=== PATIENT | female | born 1960 | race Caucasian/White ===

== ENCOUNTER 2019-10-31 13:38 | Outpatient (CLI) | payer BC, SELFPAY ==
--- NOTE | 2019-10-31 | ECG_ITS ---
Measurements Intervals [place] Rate: 83 P: 54 RI: 188 QRS: 96 QRSD: 90 T: 48 QT: 371 QTc: 437 Interpretive Statements SINUS RHYTHM WITH SINUS ARRHYTHMIA RIGHT AXIS DEVIATION MINIMAL Q WAVES- INFERIOR LEADS BASELINE ARTIFACT- I, III, AVL BORDERLINE ECG Electronically Signed On 10-31-2019 14:37:52 CDT by Kun Mosher D.O.
[2019-10-31 14:31] LABS: Anion Gap 15.1 mmol/L (7-16); Blood Urea Nitrogen 20 mg/dL (7-17); Calcium 10.1 mg/dL (8.4-10.2); Carbon Dioxide 25 mmol/L (22-30); Chloride 99 mmol/L (98-107); Estimated Glomerular Filt Rate > 60; Glucose 114 mg/dL (65-105); Potassium 5.1 mmol/L (3.4-5.0); Sodium 134 mmol/L (137-145)
== END 2019-10-31 13:39 | disposition home or self-care (01) ==
PROVIDERS: Visit Provider Podiatrist Foot & Ankle Surgery
DX: R03.0 Elevated blood-pressure reading, without diagnosis of hypertension (principal); E11.42 Type 2 diabetes mellitus with diabetic polyneuropathy; R94.31 Abnormal electrocardiogram [ECG] [EKG]
CPT/HCPCS: 36415; 80048; 93005

== ENCOUNTER → 2021-01-12 09:07 | Outpatient (CLI) | payer BC, SELFPAY ==
--- NOTE | ~2021-01-12 | DEXA_ITS ---
Bone Density Report Name: Del Paige Age: 60 Sex: Female Ethnicity: White Date of : 1960 Indication: postmenopausal; screening for osteoporosis; height loss; Referring Provider: [place], [place] Study: Bone densitometry was performed. Exam Date: January 12, 2021 Accession number: [id number] Bone Density: Region BMD T-score Z-score Classification AP Spine (L1-L4) 1.058 0.1 1.5 Normal Femoral Neck (Left) 0.728 -1.1 0.2 Osteopenia Total Hip (Left) 0.840 -0.8 0.1 Normal Femoral Neck (Right) 0.649 -1.8 -0.5 Osteopenia Total Hip (Right) 0.784 -1.3 -0.4 Osteopenia Total Hip Mean 0.812 -1.1 -0.2 Osteopenia World Health Organization criteria for BMD impression classify patients as: Normal (T-score at or above -1.0), Osteopenia (T-score between -1.0 and -2.5), or Osteoporosis (T-score at or below -2.5). 10-year Fracture Risk(1): Major Osteoporotic Fracture 8.4% Hip Fracture 0.8% Reported Risk Factors: [place] (), Neck BMD=0.649, BMI=27.9 (1) FRAX(R) Version 3.08. Fracture probability calculated for an untreated patient. Fracture probability may be lower if the patient has received treatment. Previous Exams: Region Exam Age BMD T-score BMD Change BMD Change Date g/cm2 vs Baseline vs Previous AP Spine(L1-L4) 01/12/2021 60 1.058 0.1 -0.073* -0.073* 02/22/2018 57 1.131 0.8 Total Hip(Left) 01/12/2021 60 0.840 -0.8 -0.065* -0.065* 02/22/2018 57 0.905 -0.3 Total Hip(Right) 01/12/2021 60 0.784 -1.3 -0.031* -0.031* 02/22/2018 57 0.816 -1.0 *Denotes significance at 95% confidence level, LSC for AP Spine = 0.022 g/cm2, LSC for Total Hip = 0.027 g/cm2 Clinical Information Provided by Patient: Has used the following medications: Vitamin D, Calcium Patient maximum height was 67.5 Menopause Age: 54 Onset of menses at age 14 Number of children 2 Impression: The patient has low bone mass, based on the Right Femoral Neck T-score. The patient has an estimated ten-year risk of hip fracture of 0.8% and an estimated ten-year risk of major fracture of 8.4%, based on the WHO FRAX algorithm. The BMD for the AP Spine(L1-L4) decreased, changing by -0.073 since the last DXA exam. The BMD for the Total Hip(Left) decreased, changing by -0.065 since the last DXA exam. The BMD for the Total Hip(Right) decreased, changing by -0.031 since the last DXA exam. Discussion: BONE
== END ==
PROVIDERS: Visit Provider Student in an Organized Health Care Education/Training Program
DX: Z78.0 Asymptomatic menopausal state (principal); M85.852 Other specified disorders of bone density and structure, left thigh; M85.851 Other specified disorders of bone density and structure, right thigh
CPT/HCPCS: 77080

== ENCOUNTER → 2021-01-12 10:31 | Outpatient (CLI) | payer BC, SELFPAY ==
--- NOTE | ~2021-01-12 | MM_ITS ---
EXAMINATION: MM screening ziggy BI w danyelle HISTORY: Screening mammogram TECHNIQUE: Craniocaudal and mediolateral oblique 3-D tomosynthesis images were obtained and synthetic 2-D images were generated. CAD analysis was submitted and interpreted. COMPARISON: 02/22/2018, 07/23/2013 bilateral digital screening mammogram examinations BREAST PARENCHYMAL COMPOSITION: There are scattered areas of fibroglandular density. FINDINGS: Scattered benign calcifications. Stable mild fibroglandular asymmetry. There is no evidence of suspicious mass, calcification, or architectural distortion to suggest malignancy in either breas t. There has been no suspicious interval change. IMPRESSION: 1. No mammographic evidence of malignancy. 2. Recommend routine screening mammography in one year. BI-RADS Category 2: Benign finding(s). Reviewed, dictated and finalized at location A.
--- NOTE | ~2021-01-12 | DEXA_ITS ---
Bone Density Report Name: Del Paige Age: 60 Sex: Female Ethnicity: White Date of : 1960 Indication: postmenopausal; screening for osteoporosis; height loss; Referring Provider: JACKIE DURON Study: Bone densitometry was performed. Exam Date: January 12, 2021 Accession number: [id number] Bone Density: Region BMD T-score Z-score Classification AP Spine (L1-L4) 1.058 0.1 1.5 Normal Femoral Neck (Left) 0.728 -1.1 0.2 Osteopenia Total Hip (Left) 0.840 -0.8 0.1 Normal Femoral Neck (Right) 0.649 -1.8 -0.5 Osteopenia Total Hip (Right) 0.784 -1.3 -0.4 Osteopenia Total Hip Mean 0.812 -1.1 -0.2 Osteopenia World Health Organization criteria for BMD impression classify patients as: Normal (T-score at or above -1.0), Osteopenia (T-score between -1.0 and -2.5), or Osteoporosis (T-score at or below -2.5). 10-year Fracture Risk(1): Major Osteoporotic Fracture 8.4% Hip Fracture 0.8% Reported Risk Factors: [place] (), Neck BMD=0.649, BMI=27.9 (1) FRAX(R) Version 3.08. Fracture probability calculated for an untreated patient. Fracture probability may be lower if the patient has received treatment. Previous Exams: Region Exam Age BMD T-score BMD Change BMD Change Date g/cm2 vs Baseline vs Previous AP Spine(L1-L4) 01/12/2021 60 1.058 0.1 -0.073* -0.073* 02/22/2018 57 1.131 0.8 Total Hip(Left) 01/12/2021 60 0.840 -0.8 -0.065* -0.065* 02/22/2018 57 0.905 -0.3 Total Hip(Right) 01/12/2021 60 0.784 -1.3 -0.031* -0.031* 02/22/2018 57 0.816 -1.0 *Denotes significance at 95% confidence level, LSC for AP Spine = 0.022 g/cm2, LSC for Total Hip = 0.027 g/cm2 Clinical Information Provided by Patient: Has used the following medications: Vitamin D, Calcium Patient maximum height was 67.5 Menopause Age: 54 Onset of menses at age 14 Number of children 2 Impression: The patient has low bone mass, based on the Right Femoral Neck T-score. The patient has an estimated ten-year risk of hip fracture of 0.8% and an estimated ten-year risk of major fracture of 8.4%, based on the WHO FRAX algorithm. The BMD for the AP Spine(L1-L4) decreased, changing by -0.073 since the last DXA exam. The BMD for the Total Hip(Left) decreased, changing by -0.065 since the last DXA exam. The BMD for the Total Hip(Right) decreased, changing by -0.031 since the last DXA exam. Discussion: BONE DENSITY
== END ==
PROVIDERS: PCP Student in an Organized Health Care Education/Training Program; Visit Provider Obstetrics & Gynecology
DX: Z12.31 Encounter for screening mammogram for malignant neoplasm of breast (principal); M85.80 Other specified disorders of bone density and structure, unspecified site
CPT/HCPCS: 77063; 77067; 77080

== ENCOUNTER 2022-03-10 08:45 | Emergency (ER) | payer BC, SELFPAY ==
--- NOTE | 2022-03-10 08:50 | ED.URI ---
HPI - URI/Sore Throat General Chief Complaint: Upper Respiratory Infection Stated Complaint: Sore Throat, Cough, Sinus Time Seen by Provider: 03/10/22 08:54 Source: patient, RN notes reviewed and old records reviewed Mode of arrival: ambulatory Limitations: no limitations History of Present Illness HPI Narrative: 61-year-old female presents to the [facility] with complaints of scratchy throat that started last night. Reports a cough and sinus congestion this started this morning. Patient's tested positive for COVID on Thursday. Has recently been treated with cefdinir for sinus infection. Denies chest pain or shortness of breath. Denies abdominal pain or fevers. MD elicited complaint: cough, sore throat and nasal congestion Related Data Home Medications Medication Instructions Recorded Confirmed atorvastatin 10 mg tablet 10 mg PO DAILY 09/23/21 09/23/21 melatonin 5 mg capsule mg PO DAILY 09/23/21 09/23/21 metformin 1,000 mg tablet 1,000 mg PO DAILY 09/23/21 09/23/21 oxybutynin chloride 5 mg tablet 5 mg PO DAILY 09/23/21 09/23/21 dulaglutide 1.5 mg/0.5 mL mg subcut 03/10/22 subcutaneous pen injector (Trulicity) empagliflozin 25 mg tablet mg 03/10/22 (Jardiance) lisinopril 2.5 mg tablet mg 03/10/22 03/10/22 sitagliptin phosphate 100 mg mg 03/10/22 tablet (Januvia) Allergies Allergy/AdvReac Type Severity Reaction Status Date / Time No Known Allergies Allergy Verified 03/10/22 08:52 Review of Systems Review of Systems: All systems reviewed & are unremarkable except as noted in HPI and below Constitutional: Constitutional: Reports no additional constitutional complaints Eyes: Eyes: Reports no additional eye complaints ENT: Reports as per HPI, Reports nasal congestion and Reports sore throat Cardiovascular: Cardiovascular: Reports no additional cardiovascular complaints, Denies chest pain and Denies dyspnea Respiratory: Respiratory: Reports as per HPI, Denies chest congestion, Reports cough and Denies dyspnea Gastrointestinal: Gastrointestinal: Reports no additional gastrointestinal complaints, Denies abdominal pain, Denies nausea and Denies vomiting Musculoskeletal: Musculoskeletal: Reports no additional musculoskeletal complaints Integumentary/Breasts: Skin/Breast: Reports system reviewed and no additional complaints, except as docu Neurologic: Reports system reviewed and no additional complaints, except as documented Psychiatric: Psychiatric: Reports no additional psychiatric complaints Allergic/Immunologic: Allergic/Immunologic: Reports no additional allergic/immunologic complaints [facility] Past Medical History Medical History (Updated 03/10/22 @ 09:26 by Diana Caldwell APRN) Diabetes High cholesterol Family History Family History Other Family history of congestive heart failure Family history of malignant neoplasm of ovary Family history of thyroid disease Social History Social History Smoking status: Never smoker Alcohol intake: never Comments At the time of my signature, I reviewed and agree with the nursing past medical, surgical, social, and family history. There is no relevant family history pertinent to the patient complaint. Exam Const: General: cooperative, healthy appearing, comfortable, no acute distress, well developed, alert, average body habitus and well nourished Nutritional Appearance: average body habitus and well nourished Orientation/consciousness: patient oriented x3 Limitations: no limitations HENMT: Head: normal to inspection Ears: hearing grossly normal bilaterally and external ears normal Face/Nose/Sinus: Normal external nose present, Normal nares present, Normal nasal mucous membranes and turbinates present and normal facial exam Face and sinus: normal facial exam Mouth: Yes Normal oral and palatal mucosa present, Yes lip norm
[2022-03-10 08:54] VITALS: BP 135/94; PULSE 98; RESP 18; TEMP 36; O2SAT 100
== END 2022-03-10 09:33 | disposition home or self-care (01) ==
PROVIDERS: Emergency Provider Nurse Practitioner; PCP Student in an Organized Health Care Education/Training Program
DX: B34.9 Viral infection, unspecified (principal); Z20.822 Contact with and (suspected) exposure to COVID-19; E11.9 Type 2 diabetes mellitus without complications; E78.00 Pure hypercholesterolemia, unspecified
CPT/HCPCS: 87426; 99213; C9803; G0463

== ENCOUNTER 2022-04-02 06:34 | Outpatient (CLI) | payer BC, SELFPAY ==
--- NOTE | ~2022-04-02 | MR_ITS ---
MRI of the lumbar spine Clinical History: Lumbar radiculopathy Technique: Axial T2-weighted images, and sagittal T1-weighted, T2-weighted, and T2 fat-sat images wer e acquired. Findings: There is no fracture or subluxation of the lumbar spine. Vertebral bodies maintain normal h eight and alignment. No bone marrow signal abnormality seen. At L1-L2 and L2-L3, there is no disc bulge or herniation. No spinal canal stenosis or neural foramina l narrowing at these levels. At L3-L4, there is minimal disc bulge and minimal facet joint degenerative change. No spinal canal st enosis. No neural foraminal narrowing. At L4-L5, there is minimal disc bulge and minimal facet arthropathy. No spinal canal stenosis or neur al foraminal narrowing. At L5-S1, there is minimal disc bulge and mild facet arthropathy. No spinal canal stenosis. No neural foraminal narrowing evident. Paravertebral soft tissues are unremarkable. Impression: Minimal degenerative changes, as above. No spinal canal stenosis or neural foraminal narrowing. No fracture or subluxation. Reviewed, dictated and finalized at [facility]. [employer] Impression: Minimal degenerative changes, as above. No spinal canal stenosis or neural fora fany narrowing. No fracture or subluxation.
== END 2022-04-02 06:35 | disposition home or self-care (01) ==
PROVIDERS: PCP Student in an Organized Health Care Education/Training Program; Visit Provider Student in an Organized Health Care Education/Training Program
DX: M54.16 Radiculopathy, lumbar region (principal)
CPT/HCPCS: 72148

== ENCOUNTER 2022-05-05 00:58 | Day surgery (SDC) | payer BC, SELFPAY ==
[2022-04-21 13:17] VITALS: BMI 29.0
[2022-05-05 06:53] VITALS: BP 117/81; PULSE 88; RESP 16; TEMP 36.6; O2SAT 99; BMI 27.7
[2022-05-05] MEDS: LACTATED RINGERS 1,000 ML 30 ML IV CONT (07:02)
[2022-05-05 07:08] LABS: Glucose Point of Care 108 mg/dl (65-105)
--- NOTE | 2022-05-05 07:58 | PM.HPGS ---
History of Present Illness History of Present Illness Consent: Risks, benefits, and alternatives have been discussed and questions answered. Patient agrees to proceed with procedure. Chief complaint: neoplasm screening Narrative: Del Paige is a 61 year old female with colon polyp 3 years ago Review of Systems Constitutional: Constitutional: Denies headache(s) and Denies weakness Eyes: Eyes: Denies blurry vision ENT: Reports Normal hearing present, Denies headache(s) and Denies neck pain Cardiovascular: Cardiovascular: Denies chest pain and Denies dyspnea Respiratory: Respiratory: Denies dyspnea Gastrointestinal: Gastrointestinal: Reports no additional gastrointestinal complaints Genitourinary: Genitourinary: Denies dysuria Musculoskeletal: Musculoskeletal: Denies neck pain Integumentary/Breasts: Skin/Breast: Denies dry skin Neurologic: Reports Normal hearing present, Denies headache(s) and Denies weakness Psychiatric: Psychiatric: Denies anxiety Endocrine: Endocrine: Denies change in body appearance Hematologic/Lymphatic: Hematologic/Lymphatic: Denies easy bleeding Allergic/Immunologic: Allergic/Immunologic: Denies urticaria [facility] Past Medical History Medical History (Updated 05/05/22 @ 07:58 by Reese Quinones MD) Adenomatous colon polyp Diabetes High cholesterol Family History Family History Other Family history of congestive heart failure Family history of malignant neoplasm of ovary Family history of thyroid disease Social History Social History Smoking status: Never smoker Alcohol intake: current Alcohol use details: rarely Substance use: never Substance use type: does not use Living arrangements: with family Spiritual care concerns: No Meds Home Medications and Allergies Home Medications Medication Instructions Recorded Confirmed Type atorvastatin 10 mg tablet 10 mg PO DAILY 09/23/21 05/05/22 History melatonin 5 mg capsule 5 mg PO DAILY 09/23/21 05/05/22 History metformin 1,000 mg tablet 1,000 mg PO DAILY 09/23/21 05/05/22 History oxybutynin chloride 5 mg tablet 5 mg PO DAILY 09/23/21 05/05/22 History dulaglutide 1.5 mg/0.5 mL 105 mg subcut USEASDIRECTD 03/10/22 05/05/22 History subcutaneous pen injector (Trulicity) empagliflozin 25 mg tablet 25 mg PO DAILY 03/10/22 05/05/22 History (Jardiance) lisinopril 2.5 mg tablet 2.5 mg PO DAILY 03/10/22 05/05/22 History sitagliptin phosphate 100 mg 100 mg PO DAILY 03/10/22 05/05/22 History tablet (Januvia) acetaminophen 325 mg capsule 325 mg PO DAILY PRN Pain, Mild 04/21/22 05/05/22 History (Tylenol) alendronate-vitamin D3 25 mg BYMOUTH DAILY 04/21/22 05/05/22 History calcium 100 mg capsule 100 mg PO DAILY 04/21/22 05/05/22 History coenzyme Q10 100 mg capsule (Co 100 mg PO DAILY 04/21/22 05/05/22 History Q-10) famotidine 40 mg tablet 40 mg PO HS 04/21/22 05/05/22 History lactobacillus combination no.8 3 1 cell PO DAILY 04/21/22 05/05/22 History billion cell capsule magnesium 200 mg tablet 200 mg PO DAILY 04/21/22 05/05/22 History multivit with min-folic 200 tablet PO DAILY 04/21/22 05/05/22 History acid-lutein 200 mcg-137.5 mcg chewable tablet (Adult Multivitamin (w-lutein)) naproxen 250 mg tablet 250 mg PO BID PRN Pain, Moderate 04/21/22 05/05/22 History Allergies Allergy/AdvReac Type Severity Reaction Status Date / Time No Known Allergies Allergy Verified 05/05/22 06:51 Vital Signs Vital Signs - 24 hr 05/05/22 06:53 Temperature 97.9 F Pulse Rate 88 Respiratory Rate 16 Blood Pressure 117/81 Pulse Oximetry 99 Oxygen Delivery Room Air Exam Const: General: comfortable and no acute distress HENMT: Face/Nose/Sinus: Normal nares present Eyes: General: appearance normal, both eyes and all related structures Neck: Neck: no JVD Resp
--- NOTE | 2022-05-05 08:04 | WPDANESEPPF ---
Anes - Initial Pre Proc Eval Procedure: Operation Date: 05/05/22 08:00 Proposed Procedures p Screening Colonoscopy - Reese Quinones MD Date/Time: 05/05/22 08:04 Surgeon: Reese Quinones MD Pre Op Diagnosis: neoplasm screening Patient Data Age: 61 Gender: F Height: 1.7 m Weight: 80.3 kg Last Vital Signs Temp 97.9 F 05/05/22 06:53 Pulse 88 05/05/22 06:53 Resp 16 05/05/22 06:53 BP 117/81 05/05/22 06:53 Pulse Ox 99 05/05/22 06:53 O2 Del Method Room Air 05/05/22 06:53 Allergies Allergy/AdvReac Type Severity Reaction Status Date / Time No Known Allergies Allergy Verified 05/05/22 06:51 Home Medications Medication Instructions Recorded Confirmed Type atorvastatin 10 mg tablet 10 mg PO DAILY 09/23/21 05/05/22 History melatonin 5 mg capsule 5 mg PO DAILY 09/23/21 05/05/22 History metformin 1,000 mg tablet 1,000 mg PO DAILY 09/23/21 05/05/22 History oxybutynin chloride 5 mg tablet 5 mg PO DAILY 09/23/21 05/05/22 History dulaglutide 1.5 mg/0.5 mL 105 mg subcut USEASDIRECTD 03/10/22 05/05/22 History subcutaneous pen injector (Trulicity) empagliflozin 25 mg tablet 25 mg PO DAILY 03/10/22 05/05/22 History (Jardiance) lisinopril 2.5 mg tablet 2.5 mg PO DAILY 03/10/22 05/05/22 History sitagliptin phosphate 100 mg 100 mg PO DAILY 03/10/22 05/05/22 History tablet (Januvia) acetaminophen 325 mg capsule 325 mg PO DAILY PRN Pain, Mild 04/21/22 05/05/22 History (Tylenol) alendronate-vitamin D3 25 mg BYMOUTH DAILY 04/21/22 05/05/22 History calcium 100 mg capsule 100 mg PO DAILY 04/21/22 05/05/22 History coenzyme Q10 100 mg capsule (Co 100 mg PO DAILY 04/21/22 05/05/22 History Q-10) famotidine 40 mg tablet 40 mg PO HS 04/21/22 05/05/22 History lactobacillus combination no.8 3 1 cell PO DAILY 04/21/22 05/05/22 History billion cell capsule magnesium 200 mg tablet 200 mg PO DAILY 04/21/22 05/05/22 History multivit with min-folic 200 tablet PO DAILY 04/21/22 05/05/22 History acid-lutein 200 mcg-137.5 mcg chewable tablet (Adult Multivitamin (w-lutein)) naproxen 250 mg tablet 250 mg PO BID PRN Pain, Moderate 04/21/22 05/05/22 History Laboratory Tests 05/05/22 07:05 POC Capillary Glucose 108 mg/dl H mg/dl (65-105) Patient hx anesthesia problems: none Family hx anesthesia problems: none Results Review: All pre-operative results and documents have been reviewed as part of the pre-operative evaluation. [facility] Past Medical History Medical History (Updated 05/05/22 @ 07:58 by Reese Quinones MD) Adenomatous colon polyp Diabetes High cholesterol Family History Family History Other Family history of congestive heart failure Family history of malignant neoplasm of ovary Family history of thyroid disease Social History Social History Smoking status: Never smoker Alcohol intake: current Alcohol use details: rarely Substance use: never Substance use type: does not use Living arrangements: with family Spiritual care concerns: No Anes - Eval Final PreProcedure Day of Procedure 05/05/22 08:04 Patient weight: normal Heart: regular rate and rhythm Lungs: clear to auscultation Airway: Mallampati scale class II Neurological: alert and oriented Last oral intake: >/= 8 hours ASA classification: III Emergent: no Anesthetic plan: proceed Anesthesia type and monitoring: general GIVS and standard monitoring Results Review: All pre-operative results and documents have been reviewed as part of the pre-operative evaluation. Informed Consent: The patient's anesthetic plan and its attendant risks and benefits were discussed with the patient/family/POA. Questions were solicited and answers provided to the satisfaction of the patient/family/POA.
[2022-05-05 08:23] VITALS: BP 111/70; PULSE 93; RESP 24; O2SAT 99
[2022-05-05 08:33] VITALS: BP 107/72; PULSE 87; RESP 22; O2SAT 97
[2022-05-05 08:43] VITALS: BP 122/84; PULSE 86; RESP 13; O2SAT 99
== END 2022-05-05 08:52 | disposition home or self-care (01) ==
PROVIDERS: PCP Student in an Organized Health Care Education/Training Program; Visit Provider Internal Medicine Gastroenterology
PROC: 0DJD8ZZ Inspection of Lower Intestinal Tract, Via Natural or Artificial Opening Endoscopic (ICD-10-PCS; CPT 45378; principal; 2022-05-05 08:00)
DX: Z12.11 Encounter for screening for malignant neoplasm of colon (principal); K57.30 Diverticulosis of large intestine without perforation or abscess without bleeding; D12.3 Benign neoplasm of transverse colon; K64.8 Other hemorrhoids; E11.9 Type 2 diabetes mellitus without complications; E78.00 Pure hypercholesterolemia, unspecified; Z79.84 Long term (current) use of oral hypoglycemic drugs; Z79.899 Other long term (current) drug therapy
CPT/HCPCS: 45385; 82948; 88305; J2704; J7120

== ENCOUNTER 2022-06-08 08:05 | Emergency (ER) | payer BC, SELFPAY ==
[2022-06-08 08:18] VITALS: BP 136/79; PULSE 90; RESP 16; TEMP 36.4; O2SAT 100
--- NOTE | 2022-06-08 08:45 | ED.GENADULT ---
HPI - General Adult General Chief complaint: Urogenital-Female Stated complaint: UTI Source: patient Mode of arrival: ambulatory Limitations: no limitations History of Present Illness HPI narrative: Patient presents for evaluation of urinary symptoms for last 3 days. Symptoms include dysuria, urinary frequency, and urgency. No fever, chills, nausea, vomiting, abdominal pain, low back pain. She has had urinary tract infections in the past and this feels similar. She is diabetic and states that her blood sugars at home were controlled. No vaginal bleeding or discharge. She tried taking cranberry pills and cranberry juice but symptoms have not improved Related Data Home Medications Medication Instructions Recorded Confirmed atorvastatin 10 mg tablet 10 mg PO DAILY 09/23/21 06/08/22 melatonin 5 mg capsule 5 mg PO DAILY 09/23/21 06/08/22 metformin 1,000 mg tablet 1,000 mg PO DAILY 09/23/21 06/08/22 oxybutynin chloride 5 mg tablet 5 mg PO DAILY 09/23/21 06/08/22 dulaglutide 1.5 mg/0.5 mL 105 mg subcut USEASDIRECTD 03/10/22 06/08/22 subcutaneous pen injector (Trulicity) empagliflozin 25 mg tablet 25 mg PO DAILY 03/10/22 06/08/22 (Jardiance) lisinopril 2.5 mg tablet 2.5 mg PO DAILY 03/10/22 06/08/22 sitagliptin phosphate 100 mg 100 mg PO DAILY 03/10/22 06/08/22 tablet (Januvia) acetaminophen 325 mg capsule 325 mg PO DAILY PRN Pain, Mild 04/21/22 06/08/22 (Tylenol) alendronate-vitamin D3 25 mg BYMOUTH DAILY 04/21/22 06/08/22 calcium 100 mg capsule 100 mg PO DAILY 04/21/22 06/08/22 coenzyme Q10 100 mg capsule (Co 100 mg PO DAILY 04/21/22 06/08/22 Q-10) famotidine 40 mg tablet 40 mg PO HS 04/21/22 06/08/22 lactobacillus combination no.8 3 1 cell PO DAILY 04/21/22 06/08/22 billion cell capsule magnesium 200 mg tablet 200 mg PO DAILY 04/21/22 06/08/22 multivit with min-folic 200 tablet PO DAILY 04/21/22 06/08/22 acid-lutein 200 mcg-137.5 mcg chewable tablet (Adult Multivitamin (w-lutein)) naproxen 250 mg tablet 250 mg PO BID PRN Pain, Moderate 04/21/22 06/08/22 Allergies Allergy/AdvReac Type Severity Reaction Status Date / Time No Known Allergies Allergy Verified 06/08/22 08:24 Review of Systems Review of Systems: CONSTITUTIONAL: Denies fever, chills, or sweats. EYES: Denies visual changes, redness, or discharge. ENT: Denies rhinorrhea, congestion, sore throat, or otalgia. CARDIOVASCULAR: Denies chest pain, palpitations, or edema. RESPIRATORY: Denies cough or dyspnea. GASTROINTESTINAL: Denies abdominal pain, nausea, vomiting, or diarrhea. GENITOURINARY: Repeats dysuria, urinary urgency and frequency. Denies hematuria. Denies vaginal bleeding or discharge. SKIN: Denies rash or itching. MUSCULOSKELETAL: Denies back pain, joint pain, or myalgia. NEUROLOGIC: Denies headache, numbness, dizziness, or weakness. PSYCHIATRIC: Denies anxiety or depression. [facility] Past Medical History Medical History Adenomatous colon polyp Diabetes High cholesterol Surgical History Surgical History History of knee replacement Family History Family History Other Family history of congestive heart failure Family history of malignant neoplasm of ovary Family history of thyroid disease Social History Social History Smoking status: Never smoker Alcohol intake: current Alcohol use details: rarely Substance use: never Substance use type: does not use Living arrangements: with family Spiritual care concerns: No Exam Narrative: GENERAL: Well-appearing, well-nourished, and in no acute distress. HEAD: Normocephalic, atraumatic. EYES: PERRLA and EOMI. ENT: Nares clear, no rhinorrhea or epistaxis. Mucous membranes moist. Oropharynx without tonsillar hypertro
== END 2022-06-08 08:40 | disposition home or self-care (01) ==
PROVIDERS: Emergency Provider Nurse Practitioner; PCP Student in an Organized Health Care Education/Training Program
DX: N39.0 Urinary tract infection, site not specified (principal); B95.1 Streptococcus, group B, as the cause of diseases classified elsewhere; E11.9 Type 2 diabetes mellitus without complications; E78.00 Pure hypercholesterolemia, unspecified
CPT/HCPCS: 81003; 87086; 87088; 87147; 99213; G0463

== ENCOUNTER 2022-10-05 09:15 | Emergency (ER) | payer BC, SELFPAY ==
--- NOTE | ~2022-10-05 | XR_ITS ---
EXAMINATION: XR hip RT min 2V DATE: 10/05/2022 09:59 INDICATION: Right hip pain TECHNIQUE: Anteroposterior, frog leg, and cross-table lateral views of right hip were obtained. COMPARISON: 12/17/2007 FINDINGS: Bone alignment is normal. There is no fracture. There is mild osteoarthritis of the hip. Ph leboliths are noted in the pelvis. IMPRESSION: 1. No acute osseous abnormality. Reviewed, dictated and finalized at location A.
--- NOTE | ~2022-10-05 | XR_ITS ---
EXAMINATION: XR ankle RT min 3V INDICATION: Right ankle pain TECHNIQUE: Four views of the right ankle are obtained. COMPARISON: None available FINDINGS: There is moderate osteoarthritis of the ankle. Ankle soft tissue swelling is present. No ac round valley fracture is identified. Ossification near the talar neck and dorsal to the navicular on the later al view are likely degenerative in nature. An orthopedic screw is noted in the second metatarsal. Pos terior and plantar calcaneal enthesophytes are noted. IMPRESSION: 1. No acute osseous abnormality. Reviewed, dictated and finalized at location A.
--- NOTE | 2022-10-05 09:19 | ED.LOWEXIN ---
HPI - Extremity Injury (Lower) General Chief Complaint: Extremity Injury, Lower Stated Complaint: Rt Ankle Pain,Rt Buttock Pain Due To Fall Time Seen by Provider: 10/05/22 09:19 Source: patient Mode of arrival: ambulatory Limitations: no limitations History of Present Illness HPI Narrative: Del is a 62-year-old female patient presenting to the clinic today with complaints of right ankle pain/ injury and right buttock pain after falling down a hill at her home 2 days ago. She reports she is having pain/bruising/and swelling to the right ankle and pain when sitting to her right glut. Related Data Home Medications Medication Instructions Recorded Confirmed atorvastatin 10 mg tablet 10 mg PO DAILY 09/23/21 10/05/22 melatonin 5 mg capsule 5 mg PO HS 09/23/21 10/05/22 metformin 1,000 mg tablet 1,000 mg PO DAILY 09/23/21 10/05/22 oxybutynin chloride 5 mg tablet 5 mg PO DAILY 09/23/21 10/05/22 dulaglutide 1.5 mg/0.5 mL 105 mg subcut USEASDIRECTD 03/10/22 10/05/22 subcutaneous pen injector (Trulicity) empagliflozin 25 mg tablet 25 mg PO DAILY 03/10/22 10/05/22 (Jardiance) lisinopril 2.5 mg tablet 2.5 mg PO DAILY 03/10/22 10/05/22 sitagliptin phosphate 100 mg 100 mg PO DAILY 03/10/22 10/05/22 tablet (Januvia) alendronate-vitamin D3 25 mg BYMOUTH DAILY 04/21/22 10/05/22 calcium 100 mg capsule 100 mg PO DAILY 04/21/22 10/05/22 coenzyme Q10 100 mg capsule (Co 100 mg PO DAILY 04/21/22 10/05/22 Q-10) famotidine 40 mg tablet 40 mg PO HS 04/21/22 10/05/22 lactobacillus combination no.8 3 1 cell PO DAILY 04/21/22 10/05/22 billion cell capsule magnesium 200 mg tablet 200 mg PO DAILY 04/21/22 10/05/22 multivit with min-folic 200 tablet PO DAILY 04/21/22 10/05/22 acid-lutein 200 mcg-137.5 mcg chewable tablet (Adult Multivitamin (w-lutein)) naproxen 250 mg tablet 250 mg PO BID PRN Pain, Moderate 04/21/22 10/05/22 Allergies Allergy/AdvReac Type Severity Reaction Status Date / Time No Known Allergies Allergy Verified 10/05/22 09:20 Review of Systems Review of Systems: Pertinent positives per HPI. Patient denies any fever, chills, rash, headache, visual changes, dizziness, cough, shortness of breath, chest pain, palpitations, nausea, vomiting, diarrhea, constipation, abdominal pain, or any urinary issues. PMFSH Past Medical History Medical History Adenomatous colon polyp Diabetes High cholesterol Surgical History Surgical History History of knee replacement Family History Family History Other Family history of congestive heart failure Family history of malignant neoplasm of ovary Family history of thyroid disease Social History Social History Smoking status: Never smoker Alcohol intake: current Alcohol use details: rarely Substance use: never Substance use type: does not use Living arrangements: with family Spiritual care concerns: No Comments At the time of my signature, I reviewed and agree with the nursing past medical, surgical, social, and family history. There is no relevant family history pertinent to the patient complaint. Exam Narrative: Gene General: Well-developed, well nourished, in no apparent distress Head: Normocephalic, atraumatic. Cardio: Regular rate and rhythm, s1 and s2 normal, no murmur appreciated. Resp: Clear to auscultation bilaterally, no rhonchi, rales, wheezing or rubs. Musculoskeletal: No deformity, wearing ankle brace and denies pain when brace is applied, bruising and swelling noted to the medial and lateral right ankle, tender to palpation over the medial and lateral right ankle, pain with valgus/varus testing, no pain with plantar/dorsl flexion against resistance, no bruising visualized to the ri
[2022-10-05 09:27] VITALS: BP 121/77; PULSE 94; RESP 18; TEMP 36.2; O2SAT 100
== END 2022-10-05 10:38 | disposition home or self-care (01) ==
PROVIDERS: Emergency Provider Nurse Practitioner Family; PCP Student in an Organized Health Care Education/Training Program
DX: M25.571 Pain in right ankle and joints of right foot (principal); S70.01XA Contusion of right hip, initial encounter; W17.81XA Fall down embankment (hill), initial encounter; E11.9 Type 2 diabetes mellitus without complications; E78.00 Pure hypercholesterolemia, unspecified
CPT/HCPCS: 73502; 73610; 99214; G0463

== ENCOUNTER → 2022-12-01 15:26 | Outpatient (CLI) | payer BC, SELFPAY ==
--- NOTE | ~2022-12-01 | MM_ITS ---
EXAMINATION: MM screening [facility] BI w danyelle HISTORY: Screening mammogram TECHNIQUE: Craniocaudal and mediolateral oblique 3-D tomosynthesis images were obtained and synthetic 2-D images were generated. CAD analysis was submitted and interpreted. COMPARISON: 01/12/2021, 02/22/2018, 07/13/2013 BREAST PARENCHYMAL COMPOSITION: There are scattered areas of fibroglandular density. FINDINGS: Stable focal asymmetry and calcification are again noted in the middle third of the inner r ight breast. No suspicious mass, calcification, or architectural distortion are identified in either breast to suggest malignancy. There has been no suspicious interval change. IMPRESSION: 1. No mammographic evidence of malignancy. 2. Recommend routine screening mammography in one year. BI-RADS Category 2: Benign finding(s). Reviewed, dictated and finalized at location A.
== END ==
PROVIDERS: PCP Student in an Organized Health Care Education/Training Program; Visit Provider Advanced Practice Midwife
DX: Z12.31 Encounter for screening mammogram for malignant neoplasm of breast (principal)
CPT/HCPCS: 77063; 77067

== ENCOUNTER 2023-03-13 09:20 | Emergency (ER) | payer BC, SELFPAY ==
[2023-03-13 09:38] VITALS: BP 110/75; PULSE 102; RESP 16; TEMP 36.9; O2SAT 98
--- NOTE | 2023-03-13 10:35 | ED.URI ---
HPI - URI/Sore Throat General Chief Complaint: Upper Respiratory Infection Stated Complaint: Sinus Time Seen by Provider: 03/13/23 10:28 Source: patient and RN notes reviewed Mode of arrival: ambulatory Limitations: no limitations History of Present Illness HPI Narrative: Patient presents today complaining of a 2 week history of nasal congestion, cough, postnasal drip, and chest congestion. She also reports occasional shortness of breath. Denies fever. She has been using Vicks Vaporub and cough drops. No history of asthma or COPD. Related Data Home Medications Medication Instructions Recorded Confirmed atorvastatin 10 mg tablet 10 mg PO DAILY 09/23/21 03/13/23 melatonin 5 mg capsule 5 mg PO HS 09/23/21 03/13/23 metformin 1,000 mg tablet 1,000 mg PO DAILY 09/23/21 03/13/23 oxybutynin chloride 5 mg tablet 5 mg PO DAILY 09/23/21 03/13/23 empagliflozin 25 mg tablet 25 mg PO DAILY 03/10/22 03/13/23 (Jardiance) lisinopril 2.5 mg tablet 2.5 mg PO DAILY 03/10/22 03/13/23 sitagliptin phosphate 100 mg 100 mg PO DAILY 03/10/22 03/13/23 tablet (Januvia) alendronate-vitamin D3 25 mg BYMOUTH DAILY 04/21/22 03/13/23 calcium 100 mg capsule 100 mg PO DAILY 04/21/22 03/13/23 coenzyme Q10 100 mg capsule (Co 100 mg PO DAILY 04/21/22 03/13/23 Q-10) famotidine 40 mg tablet 40 mg PO HS 04/21/22 03/13/23 lactobacillus combination no.8 3 1 cell PO DAILY 04/21/22 03/13/23 billion cell capsule magnesium 200 mg tablet 200 mg PO DAILY 04/21/22 03/13/23 multivit with min-folic 200 tablet PO DAILY 04/21/22 03/13/23 acid-lutein 200 mcg-137.5 mcg chewable tablet (Adult Multivitamin (w-lutein)) naproxen 250 mg tablet 250 mg PO BID PRN Pain, Moderate 04/21/22 03/13/23 tirzepatide 10 mg/0.5 mL mg subcut 03/13/23 subcutaneous pen injector (Tobias) Allergies Allergy/AdvReac Type Severity Reaction Status Date / Time No Known Allergies Allergy Verified 03/13/23 09:52 Review of Systems Review of Systems: CONSTITUTIONAL: Denies body aches, fever, chills, or sweats. EYES: Denies visual changes, redness, or discharge. ENT: Denies rhinorrhea, sore throat, or otalgia.+ congestion, postnasal drip CARDIOVASCULAR: Denies chest pain, palpitations, or edema. RESPIRATORY: + cough, chest congestion, mild shortness of breath GASTROINTESTINAL: Denies abdominal pain, nausea, vomiting, or diarrhea. GENITOURINARY: Denies dysuria or hematuria. SKIN: Denies rash, itching, or wounds. MUSCULOSKELETAL: Denies back pain, joint pain, or myalgia. NEUROLOGIC: Denies headache, numbness, tingling, or weakness. PSYCH: Denies depression or anxiety. FOR[facility]LY [facility] Past Medical History Medical History (Reviewed 03/13/23 @ 10:36 by Mckenzie Tian, [facility], ) Adenomatous colon polyp Diabetes High cholesterol Surgical History Surgical History (Reviewed 03/13/23 @ 10:36 by Mckenzie Tian, [facility], ) History of knee replacement Family History Family History (Reviewed 03/13/23 @ 10:36 by Mckenzie Tian, [facility], ) Other Family history of congestive heart failure Family history of malignant neoplasm of ovary Family history of thyroid disease Social History Social History (Reviewed 03/13/23 @ 10:36 by Mckenzie Tian, [facility], ) Smoking status: Never smoker Alcohol intake: current Alcohol use details: rarely Substance use: never Substance use type: does not use Living arrangements: with family Spiritual care concerns: No Comments At time of signature, I have reviewed and agree with nursing past medical, surgical, social and family history unless otherwise noted. Please see nursing chart for further information. There is no relevant family history pertinent to the presenting complaint Exam Narrative: GENERAL: Well-appearing, well-nourished, and in no acute distress. HEAD: Normocephalic, atraumatic. EYES: EOMI. No redness or drainage. Conjunctivae normal. ENT: Mucous membranes pink and moist. Nares congested.
== END 2023-03-13 10:42 | disposition home or self-care (01) ==
PROVIDERS: Emergency Provider Nurse Practitioner; PCP Student in an Organized Health Care Education/Training Program
DX: J01.90 Acute sinusitis, unspecified (principal); E11.9 Type 2 diabetes mellitus without complications; Z79.899 Other long term (current) drug therapy; Z79.84 Long term (current) use of oral hypoglycemic drugs
CPT/HCPCS: 99213; G0463

== ENCOUNTER 2023-11-06 11:59 | Outpatient (CLI) | payer BC, SELFPAY ==
--- NOTE | 2023-11-06 12:43 | ECG_ITS ---
Test Date: 2023-11-06 12:54:07 Measurements Intervals Robinson Rate: 107 P: 52 RI: 179 QRS: 108 QRSD: 93 T: 32 QT: 337 QTc: 451 Interpretive Statements SINUS TACHYCARDIA WITH OCCASIONAL VENTRICULAR PREMATURE COMPLEXES MARKED RIGHT AXIS DEVIATION [QRS AXIS > 100] ABNORMAL ECG No previous ECG available for comparison Electronically Signed On 11-06-2023 18:18:41 CDT by Jonathan Mead M.D.
[2023-11-06 14:16] LABS: Basophils Percent Auto 0.5 % (0.2-1.2); Eosinophils Absolute Auto 0.3 K/mm3 (0-0.3); Eosinophils Percent Auto 3.5 % (0-4.4); Hematocrit 45.8 % (37.0-47.0); Hemoglobin 14.7 g/dL (12.0-15.0); Immature Granulocyte Absolute 0.02 K/mm3 (0.00-0.031); Immature Granulocyte Percent A 0.2 % (0-0.5); Lymphocytes Percent Auto 28.2 % (18.3-44.2); Mean Corpuscular HGB Conc 32.1 g/dl (32-36); Mean Corpuscular Hemoglobin 29.2 pg (26-34); Mean Corpuscular Volume 90.9 fl (80-100); Mean Platelet Volume 9.9 fl (7.4-10.4); Monocytes Absolute Auto 0.6 K/mm3 (0.1-0.6); Monocytes Percent Auto 7.7 % (2.6-8.5); Neutrophils Absolute Auto 4.9 K/mm3 (1.3-6.7); Neutrophils Percent Auto 59.9 % (45.5-73.1); Platelet Count Result 354 k/mm3 (150-375); Red Blood Count 5.04 M/mm3 (4.2-5.4); Red Cell Distribution Width 13.3 % (11.5-14.5); White Blood Count 8.2 K/mm3 (4.5-10.0)
[2023-11-06 14:21] LABS: Alanine Aminotransferase 22 U/L (6-35); Albumin Level 4.7 g/dL (3.5-5.1); Alkaline Phosphatase 63 U/L (38-126); Anion Gap 12 mmol/L (4-12); Aspartate Amino Transferase 25 U/L (14-36); Bilirubin,Total 0.3 mg/dL (0.2-1.3); Blood Urea Nitrogen 16 mg/dL (7-17); Calcium 10.2 mg/dL (8.4-10.2); Carbon Dioxide 28 mmol/L (22-30); Chloride 96 mmol/L (98-107); Estimated Glomerular Filt Rate > 60; Glucose 231 mg/dL (65-110); Potassium 4.3 mmol/L (3.4-5.0); Sodium 136 mmol/L (137-145)
[2023-11-06 14:29] LABS: INR 0.9; Prothrombin Time 12.1 Seconds (11.1-14.7)
[2023-11-06 14:30] LABS: Partial Thromboplastin Time 23.1 Seconds (22.3-36.8)
== END 2023-11-06 12:00 | disposition home or self-care (01) ==
LOC: ANHSURGERY 12:06
PROVIDERS: PCP Student in an Organized Health Care Education/Training Program; Visit Provider Urology
DX: Z01.818 Encounter for other preprocedural examination (principal); N81.4 Uterovaginal prolapse, unspecified; N39.3 Stress incontinence (female) (male); E11.9 Type 2 diabetes mellitus without complications
CPT/HCPCS: 36415; 80053; 85025; 85610; 85730; 86850; 86900; 86901; 93005

== ENCOUNTER 2023-11-16 03:04 | Day surgery (SDC) | payer BC, SELFPAY ==
--- NOTE | 2023-11-06 11:48 | PC.NURSE ---
Addendum entered by Kwasi Thomas RN 11/06/23 12:44: Patient stopped Tobias 10-18-2023. Informed this was not necessary. Original Note: Report to the Outpatient Waiting Room, entrance under the green pavilion located off [facility], at time _0900_ on date _[id number]_. Planned Procedure Time: _1100_. Time changes happen often and if your time is changed the preop area will call you the afternoon before. - You and your visitor will be asked to self-screen and do not enter if you have any COVID symptoms. - A mask is optional within the hospital at this time. Patients may have clear liquids (water, carbonated beverages, clear teas, apple juice) until 3 hours prior to surgery with a maximum of 20 ounces. - No food from midnight until time of surgery Take the following medications with a SIP of water the morning of surgery: ____None DO NOT STOP ANY OF YOUR OTHER PRESCRIPTION MEDICATIONS PRIOR TO SURGERY ?EXCEPT THE FOLLOWING Medications to discontinue per physician ____All vitamins and supplements Date to take last [id number] Please no make-up, nail eritrean, hairspray, perfume, deodorant, or body powder the day of surgery. No jewelry (including any body piercings) or valuables the day of surgery, leave them at home. Please take a shower or bath the night before, or the morning of, surgery with an antibacterial soap. Wear comfortable, loose fitting clothing. - Jewelry must be removed prior to entering the operating room. Rings and piercings that are not removed may be cut off. - The hospital will not accept responsibility for valuables. - Please leave all valuables, including medications, at home the day of surgery. If you are going home after surgery, a licensed emergency vehicle driver must drive you home. - NO public transportation without another adult if you receive anesthesia. - We recommend that an adult stay with you for 24 hours following discharge. - We also recommend that you do not drive, make important decision, drink alcoholic beverages, or take any drugs that were not prescribed by your health care provider for at least 24 hours after your discharge time. Follow any additional instructions given to you from your surgeon. If you or anyone in your household have experienced Covid symptoms in the past week, please notify your surgeon or the nurse liaison at the phone number below for possible testing. Telephone instructions given to __Bilmame___and asked if any additional questions and then verbalized understanding. Patient advised to call surgeon office or pre surgery nurse liaison [phone] if any additional questions.
[2023-11-06 12:13] VITALS: BP 152/76; PULSE 105; RESP 20; TEMP 36.8; O2SAT 99; BMI 26.4
--- NOTE | 2023-11-10 15:55 | PM.IMHP ---
H&P: HPI History of Present Illness Date/Time: 11/10/23 15:55 Chief Complaint: pelvic prolapse Narrative: 53-year-old 2 para 2 admitted for robotic supracervical hysterectomy and bilateral salpingo and oophorectomy secondary to uterine prolapse. She consumes complains of pain bloating and discomfort. Risks and benefits reviewed including risk , aspiration pneumonia, bleeding, transfusion, perforation injury to bowel, bladder, ureters, or other internal organs with need for open laparotomy. She received the ACOG handout cut a history regular as well as the [employer] handout. She had all questions answered. She asked to proceed. FORMERLY [facility] Past Medical History Medical History Adenomatous colon polyp Diabetes High cholesterol Surgical History Surgical History History of knee replacement Family History Family History Other Family history of congestive heart failure Family history of malignant neoplasm of ovary Family history of thyroid disease Social History Social History Smoking status: Never smoker Alcohol intake: current Alcohol use details: rarely Substance use: never Substance use type: does not use Living arrangements: with family Spiritual care concerns: No Meds Home Medications and Allergies Home Medications Medication Instructions Recorded Confirmed Type melatonin 5 mg capsule 5 mg PO HS 09/23/21 11/06/23 History metformin 1,000 mg tablet 2,000 mg PO DAILY 09/23/21 11/06/23 History empagliflozin 25 mg tablet 25 mg PO DAILY 03/10/22 11/06/23 History (Jardiance) sitagliptin phosphate 100 mg 100 mg PO DAILY 03/10/22 11/06/23 History tablet (Januvia) calcium 100 mg capsule 100 mg PO DAILY 04/21/22 11/06/23 History coenzyme Q10 100 mg capsule (Co 100 mg PO DAILY 04/21/22 11/06/23 History Q-10) famotidine 40 mg tablet 40 mg PO HS 04/21/22 11/06/23 History multivit with min-folic 200 tablet PO DAILY 04/21/22 11/06/23 History acid-lutein 200 mcg-137.5 mcg chewable tablet (Adult Multivitamin (w-lutein)) naproxen 250 mg tablet 250 mg PO BID PRN Pain, Moderate 04/21/22 11/06/23 History tirzepatide 10 mg/0.5 mL 10 mg subcut WEEKLY 03/13/23 11/06/23 History subcutaneous pen injector (Mounjaro) acetaminophen 500 mg tablet 500 mg PO Q6H PRN Pain 11/06/23 11/06/23 History cholecalciferol (vitamin D3) 25 25 mcg PO DAILY 11/06/23 11/06/23 History mcg (1,000 unit) capsule (Vitamin D3) diphenhydramine HCl 25 mg tablet 25 mg PO HS 11/06/23 11/06/23 History (Benadryl Allergy) docusate sodium 100 mg capsule 100 mg PO DAILY 11/06/23 11/06/23 History (Colace) psyllium seed (sugar) oral powder 1 tbsp PO BID 11/06/23 11/06/23 History simethicone 500 mg capsule 500 mg PO DAILY PRN Abdominal 11/06/23 11/06/23 History (Phazyme) Distention solifenacin 5 mg tablet 5 mg PO DAILY 11/06/23 11/06/23 History Allergies Allergy/AdvReac Type Severity Reaction Status Date / Time No Known Allergies Allergy Verified 11/06/23 12:15 Exam Const: General: cooperative, healthy appearing, comfortable and average body habitus Orientation/consciousness: oriented to person, oriented to place and oriented to time HENMT: Head: normal to inspection Resp: Effort & Inspection: normal respiratory effort Cardio: Rate: regular rate Rhythm: regular rhythm Heart sounds: S1 normal heart sound present and S2 normal heart sound present GI: Inspection: normal to inspection : External Female Exam: normal external appearance Speculum Exam - Vagina: normal appearance of the vagina Speculum Exam - Cervix: normal appearance of the cervix ( 2Nd-3rd degree prolapse) Bimanual exam- vagina & uterus: soft Bimanual Exam- Adnexa, other: normal adnexa
--- NOTE | 2023-11-14 13:31 | PM.IMHP ---
H&P: HPI History of Present Illness Date/Time: 11/14/23 13:31 Chief Complaint: POP/TASHIA Narrative: 63 yo with uterine prolpase and Stress incontinence. Desires treatment Review of Systems Review of Systems: All systems reviewed & are unremarkable except as noted in HPI and below PMFSH Past Medical History Medical History Adenomatous colon polyp Diabetes High cholesterol Surgical History Surgical History History of knee replacement Family History Family History Other Family history of congestive heart failure Family history of malignant neoplasm of ovary Family history of thyroid disease Social History Social History Smoking status: Never smoker Alcohol intake: current Alcohol use details: rarely Substance use: never Substance use type: does not use Living arrangements: with family Spiritual care concerns: No Meds Home Medications and Allergies Home Medications Medication Instructions Recorded Confirmed Type melatonin 5 mg capsule 5 mg PO HS 09/23/21 11/06/23 History metformin 1,000 mg tablet 2,000 mg PO DAILY 09/23/21 11/06/23 History empagliflozin 25 mg tablet 25 mg PO DAILY 03/10/22 11/06/23 History (Jardiance) sitagliptin phosphate 100 mg 100 mg PO DAILY 03/10/22 11/06/23 History tablet (Januvia) calcium 100 mg capsule 100 mg PO DAILY 04/21/22 11/06/23 History coenzyme Q10 100 mg capsule (Co 100 mg PO DAILY 04/21/22 11/06/23 History Q-10) famotidine 40 mg tablet 40 mg PO HS 04/21/22 11/06/23 History multivit with min-folic 200 tablet PO DAILY 04/21/22 11/06/23 History acid-lutein 200 mcg-137.5 mcg chewable tablet (Adult Multivitamin (w-lutein)) naproxen 250 mg tablet 250 mg PO BID PRN Pain, Moderate 04/21/22 11/06/23 History tirzepatide 10 mg/0.5 mL 10 mg subcut WEEKLY 03/13/23 11/06/23 History subcutaneous pen injector (Mounjaro) acetaminophen 500 mg tablet 500 mg PO Q6H PRN Pain 11/06/23 11/06/23 History cholecalciferol (vitamin D3) 25 25 mcg PO DAILY 11/06/23 11/06/23 History mcg (1,000 unit) capsule (Vitamin D3) diphenhydramine HCl 25 mg tablet 25 mg PO HS 11/06/23 11/06/23 History (Benadryl Allergy) docusate sodium 100 mg capsule 100 mg PO DAILY 11/06/23 11/06/23 History (Colace) psyllium seed (sugar) oral powder 1 tbsp PO BID 11/06/23 11/06/23 History simethicone 500 mg capsule 500 mg PO DAILY PRN Abdominal 11/06/23 11/06/23 History (Phazyme) Distention solifenacin 5 mg tablet 5 mg PO DAILY 11/06/23 11/06/23 History Allergies Allergy/AdvReac Type Severity Reaction Status Date / Time No Known Allergies Allergy Verified 11/06/23 12:15 Exam Narrative: anterior wall +2 apex 0 + urethral mobility Assessment and Plan Assessment and plan (1) Uterine prolapse: Code(s): N81.4 - Uterovaginal prolapse, unspecified Status: Acute (2) TASHIA (stress urinary incontinence, female): Code(s): N39.3 - Stress incontinence (female) (male) Status: Acute Plan Robotic Sacral colpopexy and sling. Risks benifits and alternative outlined in office chart
[2023-11-16] VITALS (9 sets, daily range): BP systolic 118–145; BP diastolic 65–106; PULSE 63–100; RESP 11–24; TEMP 36.4–36.7; O2SAT 92–100
--- NOTE | 2023-11-16 04:35 | WPDHPUPDATE1 ---
History and Physical Update Update Date/Time: 11/16/23 04:35 History and Physical has been reviewed, including an updated exam of the patient. There are NO changes in the patient's condition. Risks, benefits, and alternatives have been discussed and questions answered. Patient agrees to proceed with procedure.
--- NOTE | 2023-11-16 05:41 | WPDHPUPDATE1 ---
History and Physical Update Update Date/Time: 11/16/23 05:41 History and Physical has been reviewed, including an updated exam of the patient. There are NO changes in the patient's condition. Risks, benefits, and alternatives have been discussed and questions answered. Patient agrees to proceed with procedure.
[2023-11-16] MEDS: KETOROLAC 15 MG/ML VIAL (*BKC) IV PUSH ×2 (09:23→15:31)
[2023-11-16] MEDS: ACETAMINOPHEN 500 MG TABLET 1000 MG PO (09:23)
[2023-11-16] MEDS: LACTATED RINGERS 1,000 ML 30 ML IV CONT ×2 (09:25→13:39)
[2023-11-16 09:29] LABS: Glucose Point of Care 219 mg/dl (65-105)
--- NOTE | 2023-11-16 10:06 | WPDANESEPPF ---
Anes - Initial Pre Proc Eval Procedure: Operation Date: 11/16/23 11:00 Proposed Procedures p Robotic Sacrocolpopexy - Paul Becker MD s Urethral Sling - Paul Becker MD s Robotic Assisted Supracervical Hysterectomy with Bilateral Salpingo-oophorectomy - [place] Sánchez MD Date/Time: 11/16/23 10:06 Surgeon: Paul Becker MD Pre Op Diagnosis: Uterine Prolapse, Stress Incont Patient Data Age: 63 Gender: F Height: 1.7 m Weight: 75.2 kg Last Vital Signs Temp 98.2 F 11/06/23 12:13 Pulse 105 H 11/06/23 12:13 Resp 20 11/06/23 12:13 BP 152/76 H 11/06/23 12:13 Pulse Ox 99 11/06/23 12:13 O2 Del Method Room Air 11/06/23 12:13 Allergies Allergy/AdvReac Type Severity Reaction Status Date / Time No Known Allergies Allergy Verified 11/16/23 09:03 Home Medications Medication Instructions Recorded Confirmed Type melatonin 5 mg capsule 5 mg PO HS 09/23/21 11/16/23 History metformin 1,000 mg tablet 2,000 mg PO DAILY 09/23/21 11/16/23 History empagliflozin 25 mg tablet 25 mg PO DAILY 03/10/22 11/16/23 History (Jardiance) sitagliptin phosphate 100 mg 100 mg PO DAILY 03/10/22 11/16/23 History tablet (Januvia) calcium 100 mg capsule 100 mg PO DAILY 04/21/22 11/06/23 History coenzyme Q10 100 mg capsule (Co 100 mg PO DAILY 04/21/22 11/16/23 History Q-10) famotidine 40 mg tablet 40 mg PO HS 04/21/22 11/16/23 History multivit with min-folic 200 tablet PO DAILY 04/21/22 11/16/23 History acid-lutein 200 mcg-137.5 mcg chewable tablet (Adult Multivitamin (w-lutein)) naproxen 250 mg tablet 250 mg PO BID PRN Pain, Moderate 04/21/22 11/16/23 History tirzepatide 10 mg/0.5 mL 10 mg subcut WEEKLY 03/13/23 11/06/23 History subcutaneous pen injector (Mounjaro) acetaminophen 500 mg tablet 500 mg PO Q6H PRN Pain 11/06/23 11/16/23 History cholecalciferol (vitamin D3) 25 25 mcg PO DAILY 11/06/23 11/16/23 History mcg (1,000 unit) capsule (Vitamin D3) diphenhydramine HCl 25 mg tablet 25 mg PO HS 11/06/23 11/16/23 History (Benadryl Allergy) docusate sodium 100 mg capsule 100 mg PO DAILY 11/06/23 11/16/23 History (Colace) psyllium seed (sugar) oral powder 1 tbsp PO BID 11/06/23 11/16/23 History simethicone 500 mg capsule 500 mg PO DAILY PRN Abdominal 11/06/23 11/16/23 History (Phazyme) Distention solifenacin 5 mg tablet 5 mg PO DAILY 11/06/23 11/16/23 History Laboratory Tests 11/16/23 09:26 POC Capillary Glucose 219 H mg/dl (65-105) Patient hx anesthesia problems: none Family hx anesthesia problems: none Results Review: All pre-operative results and documents have been reviewed as part of the pre-operative evaluation. [facility] Past Medical History Medical History Adenomatous colon polyp Diabetes High cholesterol Surgical History Surgical History History of knee replacement Family History Family History Other Family history of congestive heart failure Family history of malignant neoplasm of ovary Family history of thyroid disease Social History Social History Smoking status: Never smoker Alcohol intake: current Alcohol use details: rarely Substance use: never Substance use type: does not use Living arrangements: with family Spiritual care concerns: No Anes - Eval Final PreProcedure Day of Procedure 11/16/23 10:06 Patient weight: normal Heart: regular rate and rhythm Lungs: clear to auscultation Neurological: alert and oriented Last oral intake: >/= 8 hours Emergent: no Anesthetic plan: proceed Results Review: All pre-operative results and documents have been reviewed as part of the pre-operative evaluation. Informed Consent: The patient's anesthetic plan and its attenda
[2023-11-16] MEDS: SCOPOLAMINE 1 MG PATCH 1 PATCH TRANSDERM (10:35)
[2023-11-16] MEDS: ceFAZolin 2 GM/D5W 50 ML 2 GM/50 ML BAG IVPB (10:41)
[2023-11-16] MEDS: metroNIDAZOLE 500 MG/ISO 100ML 500 MG/100 ML BAG 100 MG IVPB ×2 (10:52→19:10)
[2023-11-16] MEDS: BUPIVACAINE/EPINEPHRINE 0.5% 50 ML VIAL 30 ML INFILTRATE (11:44)
--- NOTE | 2023-11-16 11:56 | P.OP_ITS ---
Procedure Note - Detailed Date of Procedure 11/16/23 Pre-op Diagnosis Uterine Prolapse, Stress Incont Post-op Diagnosis Same Procedure Performed Robotic supracervical hysterectomy salpingo-oophorectomy Surgeon Berlin Sánchez MD Anesthesia General Indications 61-year-old female with stress urinary incontinence and uterine prolapse Findings small fibroid uterus with uterine prolapse benign-appearing ovaries and tubes Description of Procedure patient is prepped draped in normal sterile fashion placed in the dorsal lithotomy position. Under excellent general trach anesthesia speculum placed in posterior fornix the a sit its was placed in the vagina and the bladder draining clear urine with a [address] Mace proceeded to dock the robot. Please see his operative report for full details. Attention was turned to the professor of counseling. The left round ligament was grasped, burned, cut. Anterior bladder flap was formed by sharply dissecting the peritoneum and retracting the better caudally away from the cervix and uterus to the opposite round ligament which was clamped, burned, cut. Next the infundibulopelvic structure on left was skeletonized to the left ovary and tube. This was serially clamped, burned, cut and brought to the level of previously cut ligament. In similar fashion removed the ovary on the right, the infundibulopelvic structure was skeletonized clamping burning and cutting until reaching the previously cut ligament right. The cardinal broad ligaments were skeletonized the lymph serially clamping, burning cutting until the uterine vessels could be seen left. These were individually clamped, burned, cut. In similar fashion on the right the cardinal broad ligaments were serially skeletonized clamping burning cutting and hugging the cervix and uterus until t he uterine vessels could be seen on the right. These were individually clamped, burned, cut. Hemostasis was assured. A supra cervical incision was made in the uterus then was bisected and 2 placing this in an Endo-Catch. A blood loss at this point was 5cc all sponge, needle, instrument counts were correct. Dr. Mace proceeded with the sacral colpopexy and sling from there please see his operative report separate Estimated Blood Loss 5 Drains No Packing No Pathology Yes Complications No immediate complications Condition Stable Disposition No change
--- NOTE | 2023-11-16 12:02 | PM.DS ---
DS: Admitting Diagnosis Discharge Date 11/17/2023 Admitting Diagnosis stress urinary incontinence/uterine prolapse DS: Discharge Diagnosis Discharge Diagnosis (1) TASHIA (stress urinary incontinence, female): Code(s): N39.3 - Stress incontinence (female) (male) Status: Acute (2) Uterine prolapse: Code(s): N81.4 - Uterovaginal prolapse, unspecified Status: Acute DS: Summary Hospital Course Reason for hospitalization: patient was admitted at on 11/16/2023 for robotic supracervical hysterectomy bilateral salpingo-oophorectomy sacral colpopexy and sling Hospital Course: the patient's hospital course unremarkable. She was up, voiding without difficulty, eating regular diet, ambulating, and generally without complaints. Time Spent with Patient Time attestation: Total time spent providing and/or coordinating discharge services: Exam Const: General: cooperative, healthy appearing and comfortable Nutritional Appearance: average body habitus Orientation/consciousness: oriented to person, oriented to place and oriented to time Resp: Effort & Inspection: normal respiratory effort Cardio: Rate: regular rate Rhythm: regular rhythm Heart sounds: S1 normal heart sound present and S2 normal heart sound present GI: Inspection: normal to inspection and incision ( Wounds are clean dry and intact) DS: Data Data Completed and Pending Labs on day of discharge: Labs from last 24 hours 11/16/23 09:26 POC Capillary Glucose 219 H Discharge Plan Discharge Patient Disposition: Home, Self-Care Discharge Instructions: Remove the Scopolamine patch that was placed behind your ear in 72 hours or less. Wash your hands after touching.No lifting >20lb, exercise for 6 weeks No tub bath or pool for 2 weeks no intercourse 6 weeks Stand Alone Forms: General Discharge Instructions Follow-up/Referrals: Paul Becker MD [Physician] - (6 weeks) Berlin Wade MD [Physician] - Discharge Medications: New docusate sodium [Colace] 100 mg capsule 100 mg PO BID Qty: 40 0RF hydrocodone-acetaminophen 5-325 mg tablet 1 tablet PO Q6H PRN (Reason: pain) Qty: 20 0RF Continued Mounjaro 10 mg/0.5 mL pen injector 10 mg SUBCUT WEEKLY Januvia 100 mg tablet 100 mg PO DAILY Jardiance 25 mg tablet 25 mg PO DAILY melatonin 5 mg capsule 5 mg PO HS metformin 1,000 mg tablet 2,000 mg PO DAILY famotidine 40 mg Tablet 40 mg PO HS calcium 100 mg Capsule 100 mg PO DAILY coenzyme Q10 [Co Q-10] 100 mg Capsule 100 mg PO DAILY [id number] acid-lutein [Adult Multivitamin (w-lutein)] 200-137.5 mcg Tablet,Chewable 200 tablet PO DAILY solifenacin 5 mg tablet 5 mg PO DAILY acetaminophen 500 mg Tablet 500 mg PO Q6H PRN (Reason: Pain) docusate sodium [Colace] 100 mg Capsule 100 mg PO DAILY psyllium seed (sugar) Powder 1 tbsp PO BID Phazyme 500 mg Capsule 500 mg PO DAILY PRN (Reason: Abdominal Distention) diphenhydramine HCl [Benadryl Allergy] 25 mg Tablet 25 mg PO HS cholecalciferol (vitamin D3) [Vitamin D3] 25 mcg (1,000 unit) Capsule 25 mcg PO DAILY Held naproxen 250 mg Tablet 250 mg PO BID PRN (Reason: Pain, Moderate) Hold Instructions: Resume on 11/18/23.
--- NOTE | 2023-11-16 13:47 | W.PM.PROC2 ---
Procedure Note - Detailed Date of Procedure 11/16/23 Pre-op Diagnosis Uterine Prolapse, Stress Incont Post-op Diagnosis Same Procedure Performed Robotic assisted laparoscopic sacral colpopexy Urethral sling Cystoscopy Surgeon Paul Becker MD Anesthesia General Indications A woman with uterine prolapse as well as stress incontinence. She desires surgical correction. She is here for the above. She understands risks of bleeding, infection, diskitis, damage to surrounding organs, bowel injury, bowel obstruction, mesh related complications including exposure and extrusion, postoperative voiding dysfunction including incontinence and retention, need for ancillary procedures, dyspareunia, recurrence of prolapse, and other perioperative intraoperative postoperative complications. She agrees to proceed. Findings See below Description of Procedure She was correctly identified. Informed consent obtained. She from the operating room. She was given general anesthesia. She was given appropriate perioperative antibiotics. She was placed a low lithotomy position. Pressure points were padded. A time-out performed. I marked out the skin 3 fingerbreadths cephalad to the umbilicus. I anesthetized the skin. I incised the skin. I dissected down to the fascia. I grasped the fascia with Leena clamps. I entered the fascia sharply in a Hagan type technique. I placed sutures for later fascial closure. I placed a midline trocar. I examined the abdomen. There is no sign of any injury. Under direct vision I placed 2 additional trocars in the right upper quadrant and 2 additional trocars the left upper quadrant. There was some wispy adhesions of omentum to the anterior abdominal wall. These were taken down sharply taking great care not to injure underlying organs. She was placed in steep Trendelenburg. The robot was docked. Her machinist mate completed their portion of the procedure. Please see that operative report for details. I then sat at the console. The Sizer in the vagina created plane on the anterior and posterior vaginal wall. I took great care not to injure the vagina, bladder, or rectum. I introduced the mesh into the abdomen. I sewed the anterior leaflet of mesh on the anterior vaginal wall. I sewed the posterior leaflet of mesh on the posterior vaginal wall. This was done with several sutures of 2 0 [place]. I reflected the colon laterally. I opened the posterior peritoneum over the sacral promontory. I carried this into the cul-de-sac. I freed up the edges for later retroperitonealization. I located the anterior longitudinal ligament the sacrum. I cleaned off all fatty tissues. I then tensioned my mesh appropriately. I did a vaginal exam the bedside. I assured prolapse reduction without undue tension. I then sewed the proximal leaflet of mesh onto the anterior longitudinal ligament of the sacrum with several sutures of 2 0 [place]Jeanc[place]. I then used a 2 0 Monocryl to completely and meticulously retroperitonealized all mesh. I allowed the colon to go back to its normal anatomic location. There is no sign of any impingement. The specimen was then removed. All ports removed. Fascia was tied down. Additional suture was placed to fully close the fascia. Skin was closed with Monocryl and surgical glue. She was repositioned and prepped for urethral sling. I marked out the inner thigh incisions. I anesthetized the skin and made the incisions. I then anesthetized the anterior vaginal wall at the mid urethra. I made a 1 cm incision. I dissected out laterally taking great care not to injure the the vaginal incision. Sling was connected to the trocars and brought out the thigh incision. I tensioned the sling appropriately. I cut and the plastic sheaths. I closed the incision with 2 0 Vicryl. I then performed cystoscopy. There was no tumors or surgical artifact. Bilateral ureteral patency was documented. Initially I thought she h
[2023-11-16 14:07] LABS: Glucose Point of Care 249 mg/dl (65-105)
[2023-11-16] MEDS: ONDANSETRON INJ 4 MG/2 ML VIAL IV PUSH (15:37)
[2023-11-16] MEDS: SIMETHICONE 80 MG TAB.CHEW PO ×2 (15:48→21:25)
--- NOTE | 2023-11-16 15:58 | ADMGEN ---
This patient, Del Paige, was admitted to OB 2nd Floor Room 290-00. Patient/family oriented to hospital policies and general routines including ID bracelet, bed and alarms, visiting hours, pain management, procedures, bathroom and other care routines, personal items, smoking policy, room service/diet, and visiting hours. Information on how to activate the Rapid Response Team has been discussed. Patient/Family are encouraged to report perceived risks to care and to ask questions if they do not understand what they are told or what they should do.
[2023-11-16 17:04] LABS: Glucose Point of Care 276 mg/dl (65-105)
[2023-11-16] MEDS: ceFAZolin 1 GM/NS 50 ML 1 GM/50 ML BAG IVPB (17:32)
[2023-11-16] MEDS: INSULIN ASPART (*BKC) 100 UNITS/ML SUB-Q (17:33)
[2023-11-16 21:25] LABS: Glucose Point of Care 276 mg/dl (65-105)
[2023-11-16] MEDS: FAMOTIDINE 20 MG TABLET 40 MG PO (21:25)
[2023-11-16] MEDS: HYDROcodone/acetaminophen (*CRX) 5-325 MG TABLET 1 TAB PO (21:25)
[2023-11-16] MEDS: MELATONIN 5 MG TABLET PO (21:25)
[2023-11-17] MEDS: ceFAZolin 1 GM/NS 50 ML 1 GM/50 ML BAG IVPB (01:45)
[2023-11-17] MEDS: HYDROcodone/acetaminophen (*CRX) 5-325 MG TABLET 1 TAB PO (02:40)
[2023-11-17] MEDS: metroNIDAZOLE 500 MG/ISO 100ML 500 MG/100 ML BAG 100 MG IVPB ×2 (02:40→11:00)
[2023-11-17 03:50] VITALS: BP 120/77; PULSE 65; RESP 18; TEMP 36.8; O2SAT 98
--- NOTE | 2023-11-17 07:18 | PM.GYNPNOP ---
MEDICAL LABORATORY TECHNOLOGIST - A/P Postoperative Procedures: Procedures Operation Date: 11/16/23 11:00 Actual Procedure Side Surgeon p Robotic Sacrocolpopexy Not Applicable Paul Becker MD s Urethral Sling Not Applicable Paul Becker MD s Robotic Assisted Supracervical Hysterectomy with Bilateral Salpingo-oophorectomy Bilateral Berlin Sánchez MD Postoperative day: 1 Postoperative status: doing well Postoperative plan: routine post-op care, see orders, ambulate, advance diet, voiding trials and discharge Time Spent With Patient Time: Total time spent is greater than 50% in coordination of care (as documented) at patient's floor/unit and/or counseling patient: Time with patient: less than 15 minutes MEDICAL LABORATORY TECHNOLOGIST- PN:Subj Post-Op Subjective Date/time seen: 11/17/23 07:18 Subjective: patient reports feeling better, patient has no complaints, patient desires discharge, pain is well controlled and patient is tolerating oral intake Exam Const: General: cooperative, healthy appearing and comfortable Nutritional Appearance: average body habitus Orientation/consciousness: oriented to person, oriented to place and oriented to time HENMT: Head: normal to inspection Resp: Effort & Inspection: normal respiratory effort Cardio: Rate: regular rate Rhythm: regular rhythm Heart sounds: S1 normal heart sound present and S2 normal heart sound present GI: Inspection: normal to inspection and incision (cdi) MEDICAL LABORATORY TECHNOLOGIST - PN: Obj Data Vital Signs Vital Signs: Vital Signs - 24 hr 11/16/23 13:39 11/16/23 13:50 11/16/23 14:05 Temperature 97.9 F Pulse Rate 100 99 96 Respiratory Rate 24 H 20 12 Blood Pressure 143/106 H 145/99 H 141/69 H Pulse Oximetry 100 100 97 Oxygen Delivery Simple Face Mask Simple Face Mask Room Air Oxygen Flow Rate 10 10 11/16/23 14:20 11/16/23 14:35 11/16/23 15:00 Temperature 97.5 F L Pulse Rate 95 98 94 Respiratory Rate 11 L 17 16 Blood Pressure 144/91 H 145/87 H 137/78 Pulse Oximetry 96 97 92 Oxygen Delivery Room Air Room Air Oxygen Flow Rate 11/16/23 15:30 11/16/23 15:30 11/16/23 19:00 Temperature 97.5 F L 98.1 F Pulse Rate 63 65 Respiratory Rate 16 18 Blood Pressure 141/84 H 118/65 Pulse Oximetry 96 96 98 Oxygen Delivery Nasal Cannula Oxygen Flow Rate 1 11/16/23 19:00 11/16/23 23:50 11/16/23 23:50 Temperature 97.9 F Pulse Rate 85 Respiratory Rate 16 Blood Pressure 137/82 Pulse Oximetry Oxygen Delivery Room Air Room Air Oxygen Flow Rate 11/17/23 03:50 11/17/23 03:50 Temperature 98.2 F Pulse Rate 65 Respiratory Rate 18 Blood Pressure 120/77 Pulse Oximetry 98 Oxygen Delivery Room Air Oxygen Flow Rate Intake/Output Intake/Output: Intake & Output 11/14/23 11/15/23 11/16/23 11/17/23 23:59 23:59 23:59 23:59 Intake Total 1150 700 Output Total 450 950 Balance 700 -250 Meds/Results Medications: Active Medications Generic Name Dose Route Start Last Admin Trade Name Freq PRN Reason Stop Dose Admin Acetaminophen 650 mg 11/16/23 10:13 Acetaminophen 325 Mg Tablet PO Q4H PRN Mild Pain (1-3) or Fever Hydrocodone Bitart/Acetaminophen 1 tab 11/16/23 10:13 11/17/23 02:40 Hydrocodone/Acetaminophen (*Crx) 5-325 Mg Tablet PO 1 tab Q4H PRN Administration Pain Rated 4-5 Cephalexin HCl 500 mg 11/17/23 09:00 Cephalexin 500 Mg Capsule PO QID MADDIE Dextrose 12.5 gm 11/16/23 10:15 Dextrose 50% 25 Gm/50 Ml Syringe IV PUSH PRN PRN Hypoglycemia Protocol Diphenhydramine HCl 25 mg 11/16/23 10:13 Diphenhydramine Hcl Inj 50 Mg/Ml Vial IV PUSH Q6H PRN Itching Docusate Sodium 100 mg 11/17/23 09:00 Docusate Sodium 100 Mg Capsule PO DAILY MADDIE Enoxaparin Sodium 30 mg 11/17/23 09:00 Enoxaparin 30 Mg/0.3 Ml Syringe SUB-Q DAILY MADDIE Famotidine 40 mg 11/16/23 21:00 11/16/23 21:25 Famotidine 20 Mg Tablet PO 40 mg HS MADDIE Administration Glucagon 1
[2023-11-17 07:30] VITALS: BP 121/64; PULSE 66; RESP 16; TEMP 37.3; O2SAT 99
[2023-11-17 07:42] LABS: Glucose Point of Care 209 mg/dl (65-105)
[2023-11-17] MEDS: DOCUSATE SODIUM 100 MG CAPSULE PO (09:24)
[2023-11-17] MEDS: CEPHALEXIN 500 MG CAPSULE PO (09:25)
[2023-11-17] MEDS: SIMETHICONE 80 MG TAB.CHEW PO (09:25)
[2023-11-17] MEDS: ENOXAPARIN 30 MG/0.3 ML SYRINGE SUB-Q (09:26)
[2023-11-17] MEDS: SOLIFENACIN 5 MG TABLET PO (09:37)
[2023-11-17] MEDS: metFORMIN HCL XR 500 MG TAB.SR.24H 2000 MG PO (09:39)
[2023-11-17] MEDS: ACETAMINOPHEN 325 MG TABLET 650 MG PO (09:48)
[2023-11-17 11:21] LABS: Glucose Point of Care 223 mg/dl (65-105)
[2023-11-17] MEDS: INSULIN ASPART (*BKC) 100 UNITS/ML SUB-Q (11:39)
== END 2023-11-17 13:42 | disposition home or self-care (01) ==
LOC: ANHSURGERY 12:28 → ANHOB2 15:18
PROVIDERS: Obstetrics & Gynecology; PCP Student in an Organized Health Care Education/Training Program; Visit Provider Urology
PROC: (CPT 57425; principal; 2023-11-16 11:00)
PROC: (CPT 57288; 2023-11-16 11:00)
PROC: 0UT94ZZ Resection of Uterus, Percutaneous Endoscopic Approach (ICD-10-PCS; CPT 57425; 2023-11-16 11:00)
DX: N81.4 Uterovaginal prolapse, unspecified (principal); N39.3 Stress incontinence (female) (male); E11.9 Type 2 diabetes mellitus without complications; E78.00 Pure hypercholesterolemia, unspecified; Z79.84 Long term (current) use of oral hypoglycemic drugs; Z79.85 Long-term (current) use of injectable non-insulin antidiabetic drugs
CPT/HCPCS: 58542; 57288; 57425; S2900 ×2; 82948; 88307; 99199; A9270; C1769; C1771; C1781; J0690; J1100; J1170; J1650; J1815; J1836; J1885; J2250; J2405; J2704; J3010; J7030; J7120

== ENCOUNTER 2023-12-04 09:42 | Outpatient (CLI) | payer BC, SELFPAY ==
--- NOTE | ~2023-12-04 | MM_ITS ---
EXAMINATION: MM screening ziggy BI w danyelle HISTORY: Screening TECHNIQUE: Craniocaudal and mediolateral oblique 3-D tomosynthesis images were obtained and synthetic 2-D images were generated. CAD analysis was submitted and interpreted. COMPARISON: Comparison to multiple prior studies sequentially, with oldest reviewed study dated 02/04. BREAST PARENCHYMAL COMPOSITION: Dense: The breasts are heterogeneously dense, which may obscure small masses FINDINGS: There is no evidence of suspicious mass, calcification, or architectural distortion to sugg est malignancy in either breast. There has been no suspicious interval change. IMPRESSION: 1. No mammographic evidence of malignancy. 2. Recommend routine screening mammography in one year. BI-RADS Category 1: Negative Reviewed, dictated and finalized at location B.
== END 2023-12-04 09:43 | disposition home or self-care (01) ==
LOC: MICIMG 09:43
PROVIDERS: PCP Student in an Organized Health Care Education/Training Program; Visit Provider Obstetrics & Gynecology
DX: Z12.31 Encounter for screening mammogram for malignant neoplasm of breast (principal)
CPT/HCPCS: 77063; 77067

== ENCOUNTER 2024-01-25 09:05 | Emergency (ER) | payer BC, SELFPAY ==
[2024-01-25 09:14] VITALS: BP 125/73; PULSE 104; RESP 20; TEMP 36.8; O2SAT 98
--- NOTE | 2024-01-25 09:21 | ED.URI ---
HPI - URI/Sore Throat General Stated Complaint: Sinus Time Seen by Provider: 01/25/24 09:29 Source: patient and RN notes reviewed Mode of arrival: ambulatory Limitations: no limitations History of Present Illness HPI Narrative: 63-year-old female presents with concern for more than a month long history of postnasal and, sinus congestion and drainage. Reports over the last 2 days she has had sinus pressure, pain, ear pressure, sore. She reports she takes antihistamines, she has not taken any other cold medicine. She denies fever. She denies cough MD elicited complaint: cough and sore throat Related Data Home Medications Medication Instructions Recorded Confirmed melatonin 5 mg capsule 5 mg PO HS 09/23/21 01/25/24 metformin 1,000 mg tablet 2,000 mg PO DAILY 09/23/21 01/25/24 empagliflozin 25 mg tablet 25 mg PO DAILY 03/10/22 01/25/24 (Jardiance) sitagliptin phosphate 100 mg 100 mg PO DAILY 03/10/22 01/25/24 tablet (Januvia) calcium 100 mg capsule 100 mg PO DAILY 04/21/22 01/25/24 coenzyme Q10 100 mg capsule (Co 100 mg PO DAILY 04/21/22 01/25/24 Q-10) famotidine 40 mg tablet 40 mg PO HS 04/21/22 01/25/24 multivit with min-folic 200 tablet PO DAILY 04/21/22 01/25/24 acid-lutein 200 mcg-137.5 mcg chewable tablet (Adult Multivitamin (w-lutein)) naproxen 250 mg tablet 250 mg PO BID PRN Pain, Moderate 04/21/22 01/25/24 tirzepatide 10 mg/0.5 mL 10 mg subcut WEEKLY 03/13/23 01/25/24 subcutaneous pen injector (Mounjaro) acetaminophen 500 mg tablet 500 mg PO Q6H PRN Pain 11/06/23 01/25/24 cholecalciferol (vitamin D3) 25 25 mcg PO DAILY 11/06/23 01/25/24 mcg (1,000 unit) capsule (Vitamin D3) diphenhydramine HCl 25 mg tablet 25 mg PO HS 11/06/23 01/25/24 (Benadryl Allergy) psyllium seed (sugar) oral powder 1 tbsp PO BID 11/06/23 01/25/24 simethicone 500 mg capsule 500 mg PO DAILY PRN Abdominal 11/06/23 01/25/24 (Phazyme) Distention solifenacin 5 mg tablet 5 mg PO DAILY 11/06/23 01/25/24 Allergies Allergy/AdvReac Type Severity Reaction Status Date / Time No Known Allergies Allergy Verified 01/25/24 09:24 Review of Systems Review of Systems: CONSTITUTIONAL: Denies malaise, chills, sweats, or fever. EYES: Denies visual changes, redness, or discharge. ENT: Reports rhinorrhea, congestion, sinus pain, otalgia and sore throat. CARDIOVASCULAR: Denies chest pain, palpitations, or edema. RESPIRATORY: Denies cough. Denies dyspnea. GASTROINTESTINAL: Denies abdominal pain, nausea, vomiting, diarrhea SKIN: Denies rash or itching. MUSCULOSKELETAL: Denies myalgia. NEUROLOGIC: Denies headache. All systems reviewed & are unremarkable except as noted in HPI and below PMFSH Past Medical History Medical History Adenomatous colon polyp Diabetes High cholesterol Surgical History Surgical History History of knee replacement Family History Family History Other Family history of congestive heart failure Family history of malignant neoplasm of ovary Family history of thyroid disease Social History Social History Smoking status: Never smoker Alcohol intake: current Alcohol use details: rarely Substance use: never Substance use type: does not use Living arrangements: with family Spiritual care concerns: No Comments At time of signature, agree with nursing past medical, surgical, social and family history. There is no relevant family history pertinent to the presenting complaint Exam Narrative: GENERAL: Well-appearing, well-nourished, and in no acute distress. HEAD: Normocephalic EYES: PERRLA, conjunctivae clear ENT: Nares clear. Mucous membranes moist. TM pearly sinclair with dull light reflex bilaterally; no tragal tenderness. Oropharynx not erythematous withou
== END 2024-01-25 09:45 | disposition home or self-care (01) ==
PROVIDERS: Emergency Provider Nurse Practitioner; PCP Student in an Organized Health Care Education/Training Program
DX: J01.90 Acute sinusitis, unspecified (principal); E11.9 Type 2 diabetes mellitus without complications; Z79.84 Long term (current) use of oral hypoglycemic drugs; E78.00 Pure hypercholesterolemia, unspecified
CPT/HCPCS: 99213; G0463

== ENCOUNTER 2024-03-15 08:34 | Emergency (ER) | payer BC, SELFPAY ==
[2024-03-15 08:43] VITALS: BP 125/86; PULSE 103; RESP 16; TEMP 36.6; O2SAT 100
--- NOTE | 2024-03-15 09:06 | ED.FEMALEGU ---
HPI - Female Genitourinary General Stated complaint: urinary issue Time Seen by Provider: 03/15/24 09:10 Source: patient, RN notes reviewed and old records reviewed Mode of arrival: ambulatory Limitations: no limitations History of Present Illness HPI Narrative: Patient presents with complaints of urinary frequency and burning. She reports symptoms started late last week, have worsened. She denies any fever, chills, sweats. She reports urgency to the point where she has had some urinary incontinence. She denies any back pain, denies any abdominal pain. No nausea or vomiting. Denies any injury or trauma. Voices no other concerns or complaints at this time. Related Data Home Medications ?Medication ?Instructions ?Recorded ?Confirmed ?Last Taken ?Type calcium 100 mg capsule 100 mg PO DAILY 04/21/22 01/25/24 Unknown History yeftqmwhuqlg-qvxg-nxsav acid 200 200 tablet PO DAILY 04/21/22 01/25/24 11/13/23 History mcg-lutein 137.5 mcg chewable tablet (Adult Multivitamin (w-lutein)) naproxen 250 mg tablet 250 mg PO BID PRN Pain, Moderate 04/21/22 01/25/24 11/13/23 History acetaminophen 500 mg tablet 500 mg PO Q6H PRN Pain 11/06/23 01/25/24 11/13/23 History cholecalciferol (vitamin D3) 25 25 mcg PO DAILY 11/06/23 03/15/24 11/13/23 History mcg (1,000 unit) capsule (Vitamin D3) psyllium seed (sugar) oral powder 1 tbsp PO BID 11/06/23 01/25/24 11/13/23 History simethicone 500 mg capsule 500 mg PO DAILY PRN Abdominal 11/06/23 01/25/24 11/13/23 History (Phazyme) Distention melatonin 5 mg capsule 10 mg PO HS 02/08/24 Unknown History Allergies Allergy/AdvReac Type Severity Reaction Status Date / Time [id number] Reductase AdvReac Intermediate Muscle Verified 02/08/24 07:27 Inhibitor Spasms Review of Systems Review of Systems: All systems reviewed & are unremarkable except as noted in HPI and below Constitutional: Constitutional: Reports no additional constitutional complaints ENT: Reports system reviewed and no additional complaints, except as documented Cardiovascular: Cardiovascular: Reports no additional cardiovascular complaints Respiratory: Respiratory: Reports no additional respiratory complaints Gastrointestinal: Gastrointestinal: Reports no additional gastrointestinal complaints Genitourinary: Genitourinary: Reports no additional female genitourinary complaints, Reports as per HPI, Reports nocturia, Reports dysuria, Reports urinary incontinence and Reports urinary urgency [facility] Past Medical History Medical History Arthritis Allergies Adenomatous colon polyp High cholesterol Diabetes Surgical History Surgical History History of knee replacement Family History Family History Mother Cancer Father Cancer Thyroid disorder Heart problem Other Family history of congestive heart failure Family history of malignant neoplasm of ovary Family history of thyroid disease Social History Social History Smoking status: Never smoker Alcohol intake: current Alcohol use details: rarely Substance use: never Substance use type: does not use Living arrangements: with family Spiritual care concerns: No Comments At the time of my signature, I reviewed and agree with the nursing past medical, surgical, social, and family history. There is no relevant family history pertinent to the patient complaint. Exam Const: General: cooperative, no acute distress, alert and awake Orientation/consciousness: oriented to person, oriented to place and oriented to time HENMT: Head: normal to inspection Resp: Effort & Inspection: normal respiratory effort and able to speak in complete sentences Auscultation: clear to auscultation bilaterally, no crackles, no rales, no rhonchi and no wheezes Cardio: Palpation: normal PMI Rate: regular rate Rhythm: regular rhythm Heart sounds: S1 normal heart sound present and S2 normal heart sound present : General: Yes bladder normal to palpation and Yes no CVA tenderness Neuro: General: oriented to person, oriented to place and oriented to time Cranial nerves: Yes CN's II-XII intact bilaterally Psych: Appearance: grossly normal Thought process: Normal thought process present Insight: Good insight present (Psych) Judgement: Good judgement present (Psych) Course Course Level of Care: Express Care Visit Vital Signs Vital signs: Vital Signs Temperature 97.9 F 03/15/24 08:43 Pulse Rate 103 H 03/15/24 08:43 Respiratory Rate 16 03/15/24 08:43 Blood Pressure 125/86 03/15/24 08:43 Pulse Oximetry 100 03/15/24 08:43 Oxygen Delivery Room Air 03/15/24 08:43 Temperature 97.9 F 03/15/24 08:43 Pulse Rate 103 H 03/15/24 08:43 Respiratory Rate 16 03/15/24 08:43 Blood Pressure 125/86 03/15/24 08:43 Pulse Oximetry 100 03/15/24 08:43 Oxygen Delivery Room Air 03/15/24 08:43 Reviewed MDM - Female Genitourinary MDM Narrative Medical decision making narrative: UA concerning for UTI. Culture pending. Start Macrobid. Patient nontoxic appearing, stable for discharge home on p.o. antibiotic therapy. Discharge instructions reviewed with patient, as well as provided in writing per nursing staff. The instructions also include specific and strict return/GO TO THE ER as well as f/u information. All questions have been answered, and the patient deny any further questions with discharge and discharge plan. Some parts of this dictation were generated by voice recognition software and may contain typographical and/or grammatical inaccuracies. Differential Diagnosis Differential diagnosis: Likely urinary tract infection Medical Records Attestation: I reviewed the patient's medical records. Lab Data Attestation: I reviewed the patient's lab results. Discharge Plan Discharge Clinical Impression: UTI (urinary tract infection) Qualifiers: Urinary tract infection type: site unspecified Hematuria presence: with hematuria Qualified Code(s): N39.0 - Urinary tract infection, site not specified Patient Disposition: Home, Self-Care Condition: Stable Instructions: Antibiotic Form, Urinary Tract Infection in Women (ED) Additional Instructions: Drink plenty of water. Take all medications as prescribed. Follow with primary care provider. Emergency department for new or worse symptoms Patient Language: Divehi Prescriptions: New nitrofurantoin monohyd/m-cryst [Macrobid] 100 mg capsule 100 mg PO Q12H 5 Days Qty: 10 0RF Rx Instructions: must administer with a meal/food No Action (DME) Dexcom G6 Transmitter Device See Rx Instructions .Route Qty: 1 0RF Rx Instructions: As directed (DME) Dexcom G6 Sensor Device See Rx Instructions .Route Qty: 3 3RF Rx Instructions: As directed Jardiance 25 mg tablet 25 mg PO DAILY Qty: 90 1RF famotidine 40 mg tablet 40 mg PO HS Qty: 90 1RF Mounjaro 12.5 mg/0.5 mL pen injector 12.5 mg subcut WEEKLY Qty: 2 0RF Januvia 100 mg tablet 100 mg PO DAILY Qty: 90 1RF ipratropium bromide 42 mcg (0.06 %) spray,non-aerosol 2 spray intranasal TID Qty: 15 1RF Rx Instructions: administer into each nostril solifenacin 5 mg tablet 5 mg PO DAILY Qty: 90 1RF melatonin 5 mg capsule 10 mg PO HS naproxen 250 mg Tablet 250 mg PO BID PRN (Reason: Pain, Moderate) calcium 100 mg Capsule 100 mg PO DAILY awatccdy-ujx-ljtzs acid-lutein [Adult Multivitamin (w-lutein)] 200-137.5 mcg Tablet,Chewable 200 tablet PO DAILY acetaminophen 500 mg Tablet 500 mg PO Q6H PRN (Reason: Pain) psyllium seed (sugar) Powder 1 tbsp PO BID Phazyme 500 mg Capsule 500 mg PO DAILY PRN (Reason: Abdominal Distention) cholecalciferol (vitamin D3) [Vitamin D3] 25 mcg (1,000 unit) Capsule 25 mcg PO DAILY docusate sodium [Colace] 100 mg capsule 100 mg PO BID Qty: 40 0RF metformin 1,000 mg tablet See Rx Instructions .ROUTE .COMPLEX Qty: 180 0RF Dose Instruction: TAKE 2 TABLETS BY MOUTH DAILY Rx Instructions: TAKE 2 TABLETS BY MOUTH DAILY Follow-up/Referrals: Boogie Paige MD [Primary Care Provider] - 2 Weeks Time of Disposition: 09:15
[2024-03-15 09:37] LABS: EDUAAPPEAR Cloudy; EDUABILI Negative (Negative); EDUABLOOD Trace (Negative); EDUACOLOR1 Yellow; EDUAGLUCOSE 2+ (Negative); EDUAKETONE Trace (Negative); EDUALEUKO Trace (Negative); EDUANITRATE Negative (Negative); EDUAPROTEIN Negative (Negative); EDUAUROBILI 0.2
== END 2024-03-15 09:23 | disposition home or self-care (01) ==
PROVIDERS: Emergency Provider Nurse Practitioner Family; PCP Family Medicine
DX: N39.0 Urinary tract infection, site not specified (principal); E11.9 Type 2 diabetes mellitus without complications; E78.00 Pure hypercholesterolemia, unspecified; M19.90 Unspecified osteoarthritis, unspecified site
CPT/HCPCS: 81003; 87086; 87181; 99213; G0463

== ENCOUNTER 2024-06-30 08:18 | Emergency (ER) | payer BC, SELFPAY ==
--- NOTE | 2024-06-30 08:21 | ED.GENADULT ---
HPI - General Adult General Chief complaint: Skin/Abscess/Foreign Body Stated complaint: Skin Issues Time Seen by Provider: 06/30/24 08:26 Source: patient, RN notes reviewed and old records reviewed Mode of arrival: ambulatory Limitations: no limitations History of Present Illness HPI narrative: 63-year-old female presents to the [facility] with itchy skin of her neck, chest. Denies any rashes. States been going on for 4-5 days. Has taken Benadryl 1 time and does not like the high feeling. denies any chest pain, shortness of breath. Denies any new creams ointments lotions detergents. Denies any new foods. Related Data Home Medications ?Medication ?Instructions ?Recorded ?Confirmed ?Last Taken ?Type calcium 100 mg capsule 100 mg PO DAILY 04/21/22 06/30/24 Unknown History bnvfzjsavukl-nsay-oqedg acid 200 200 tablet PO DAILY 04/21/22 06/30/24 11/13/23 History mcg-lutein 137.5 mcg chewable tablet (Adult Multivitamin (w-lutein)) naproxen 250 mg tablet 250 mg PO BID PRN Pain, Moderate 04/21/22 06/30/24 11/13/23 History acetaminophen 500 mg tablet 500 mg PO Q6H PRN Pain 11/06/23 06/30/24 11/13/23 History cholecalciferol (vitamin D3) 25 25 mcg PO DAILY 11/06/23 06/30/24 11/13/23 History mcg (1,000 unit) capsule (Vitamin D3) psyllium seed (sugar) oral powder 1 tbsp PO BID 11/06/23 06/30/24 11/13/23 History simethicone 500 mg capsule 500 mg PO DAILY PRN Abdominal 11/06/23 06/30/24 11/13/23 History (Phazyme) Distention melatonin 5 mg capsule 10 mg PO HS 02/08/24 06/30/24 Unknown History Allergies Allergy/AdvReac Type Severity Reaction Status Date / Time Lfrzplv-TJJ-GvP Reductase AdvReac Intermediate Muscle Verified 06/30/24 08:21 Inhibitor Spasms Review of Systems Review of Systems: All systems reviewed & are unremarkable except as noted in HPI and below Constitutional: Constitutional: Reports no additional constitutional complaints ENT: Reports system reviewed and no additional complaints, except as documented Cardiovascular: Cardiovascular: Reports no additional cardiovascular complaints, Denies chest pain and Denies dyspnea Respiratory: Respiratory: Reports no additional respiratory complaints, Denies chest congestion, Denies cough and Denies dyspnea Musculoskeletal: Musculoskeletal: Reports no additional musculoskeletal complaints Integumentary/Breasts: Skin/Breast: Reports as per HPI, Denies rash, Denies skin pain, Denies skin swelling and Denies skin ulcer PMFSH Past Medical History Medical History Arthritis Allergies Adenomatous colon polyp High cholesterol Diabetes Surgical History Surgical History History of knee replacement Family History Family History Mother Cancer Father Cancer Thyroid disorder Heart problem Other Family history of congestive heart failure Family history of malignant neoplasm of ovary Family history of thyroid disease Social History Social History Smoking status: Never smoker Alcohol intake: current Alcohol use details: rarely Substance use: never Substance use type: does not use Living arrangements: with family Spiritual care concerns: No Comments At the time of my signature, I reviewed and agree with the nursing past medical, surgical, social, and family history. There is no relevant family history pertinent to the patient complaint. Exam Const: General: cooperative, no acute distress, well developed, alert, anxious, uncomfortable and well nourished Nutritional Appearance: well nourished Orientation/consciousness: patient oriented x3 Limitations: no limitations HENMT: Head: normal to inspection Ears: hearing grossly normal bilaterally, external ears normal, TM's normal bilaterally, EAC's normal, mastoids normal and no periauricular adenopathy Mouth: Yes Normal oral and palatal mucosa present, Yes lip normal, Yes tongue normal and Yes moist mucous membranes Throat: posterior oropharynx normal, uvula midline and no uvular edema Eyes: General: appearance normal, both eyes and all related structures Alignment and Position: alignment normal Neck: Neck: normal visual inspection, full ROM, no lymphadenopathy and no meningeal signs Chest: Chest palpation & inspection: normal inspection of the chest Resp: Effort & Inspection: normal respiratory effort and able to speak in complete sentences Auscultation: clear to auscultation bilaterally, no crackles, no rales, no rhonchi and no wheezes Cardio: Rate: regular rate Skin: General skin exam: normal color and no rashes or lesions noted Rashes: no rashes Neuro: General: patient oriented x3, gait normal, moves all extremities and no meningeal signs Cognition (Neuro): normal cognition Speech: normal speech Gait exam (Neuro): Normal gait present Extrem: General: normal to inspection, full ROM, capillary refill normal and normal gait Psych: Appearance: grossly normal and well kempt Mental Status: mental status grossly normal Speech and movement: Normal speech and movement present and Clear speech present Affect: normal affect Attitude: cooperative Course Course Level of Care: Express Care Visit Vital Signs Vital signs: Vital Signs Temperature 98.4 F 06/30/24 08:26 Pulse Rate 107 H 06/30/24 08:26 Respiratory Rate 16 06/30/24 08:26 Blood Pressure 133/90 06/30/24 08:26 Pulse Oximetry 98 06/30/24 08:26 Oxygen Delivery Room Air 06/30/24 08:26 Temperature 98.4 F 06/30/24 08:26 Pulse Rate 107 H 06/30/24 08:26 Respiratory Rate 16 06/30/24 08:26 Blood Pressure 133/90 06/30/24 08:26 Pulse Oximetry 98 06/30/24 08:26 Oxygen Delivery Room Air 06/30/24 08:26 Reviewed Medical Decision Making MDM Narrative Medical decision making narrative: Patient sitting in exam room. Nontoxic, vitals are stable. Patient in no acute distress. Patient presents with 4-5 day history of itching to the chest, neck and under chin. No rashes. No oral swelling, no angioedema. no difficulty breathing states that she tried taking Benadryl did like the side effect discussed vmwe-lru-jkgperu treatments as well as prescribing Atarax. Patient is appropriate for outpatient treatment with close follow-up. Discharge instructions reviewed with patient, as well as provided in writing per nursing staff. The instructions also include specific and strict return/GO TO THE ER as well as f/u information. All questions have been answered, and the patient deny any further questions with discharge and discharge plan. Some parts of this dictation were generated by voice recognition software and may contain typographical and/or grammatical inaccuracies. Differential Diagnosis Differential Diagnosis: Urticatia, hives, allergic reaction, seasonal allergies Medical Records Medical records reviewed: Yes I reviewed the external patient's medical records. Vital Signs Vital Signs: Vital Signs Temperature 98.4 F 06/30/24 08:26 Pulse Rate 107 H 06/30/24 08:26 Respiratory Rate 16 06/30/24 08:26 Blood Pressure 133/90 06/30/24 08:26 Pulse Oximetry 98 06/30/24 08:26 Oxygen Delivery Room Air 06/30/24 08:26 Temperature 98.4 F 06/30/24 08:26 Pulse Rate 107 H 06/30/24 08:26 Respiratory Rate 16 06/30/24 08:26 Blood Pressure 133/90 06/30/24 08:26 Pulse Oximetry 98 06/30/24 08:26 Oxygen Delivery Room Air 06/30/24 08:26 Reviewed Lab Data Lab results reviewed: Yes I reviewed the patient's lab results. Labs: Reviewed Critical Care Time Critical Care Time Critical Care Time: No Discharge Plan Discharge Clinical Impression: Itchy skin Patient Disposition: Home, Self-Care Condition: Stable Instructions: Antibiotic Form, Urticaria (ED) Additional Instructions: The most important part of your care is follow up with Primary care provider. take the Atarax as prescribed or Take Benadryl 25-50 mg every 8 hours for itching Take Zyrtec every day Take Pepcid 20mg daily for 7 days Avoid hot showers, Take cool showers. Hot showers will make rashes worse Apply cool compresses every 2-3 hours for 15 minutes Go to the ER for new or worsening symptoms such as shortness of breath. follow-up with your primary care provider within 2 weeks Patient Language: Welsh Prescriptions: New hydroxyzine HCl 10 mg tablet 10 mg PO TID PRN (Reason: itching) Qty: 10 0RF No Action Jardiance 25 mg tablet 25 mg PO DAILY Qty: 90 1RF ipratropium bromide 42 mcg (0.06 %) spray,non-aerosol 2 spray intranasal TID Qty: 15 1RF Rx Instructions: administer into each nostril melatonin 5 mg capsule 10 mg PO HS naproxen 250 mg Tablet 250 mg PO BID PRN (Reason: Pain, Moderate) calcium 100 mg Capsule 100 mg PO DAILY ninlrcoj-uob-nfmaa acid-lutein [Adult Multivitamin (w-lutein)] 200-137.5 mcg Tablet,Chewable 200 tablet PO DAILY acetaminophen 500 mg Tablet 500 mg PO Q6H PRN (Reason: Pain) psyllium seed (sugar) Powder 1 tbsp PO BID Phazyme 500 mg Capsule 500 mg PO DAILY PRN (Reason: Abdominal Distention) cholecalciferol (vitamin D3) [Vitamin D3] 25 mcg (1,000 unit) Capsule 25 mcg PO DAILY docusate sodium [Colace] 100 mg capsule 100 mg PO BID Qty: 40 0RF metformin 1,000 mg tablet See Rx Instructions .ROUTE .COMPLEX Qty: 180 0RF Dose Instruction: TAKE 2 TABLETS BY MOUTH DAILY Rx Instructions: TAKE 2 TABLETS BY MOUTH DAILY solifenacin 5 mg tablet 5 mg PO BID Qty: 180 1RF Januvia 100 mg tablet 100 mg PO DAILY Qty: 90 1RF famotidine 40 mg tablet See Rx Instructions .ROUTE .COMPLEX Qty: 90 1RF Dose Instruction: TAKE 1 TABLET BY MOUTH DAILY AT BEDTIME Rx Instructions: TAKE 1 TABLET BY MOUTH DAILY AT BEDTIME (DME) Dexcom G6 Transmitter Device See Rx Instructions .ROUTE .COMPLEX Qty: 1 0RF Dose Instruction: DIRECTED Rx Instructions: DIRECTED Mounjaro 12.5 mg/0.5 mL pen injector 12.5 mg subcut WEEKLY Qty: 2 5RF (DME) Dexcom G6 Sensor Device See Rx Instructions .Route Qty: 9 1RF Rx Instructions: check glucose continuously As directed Follow-up/Referrals: Boogie Paige MD [Primary Care Provider] - 2 Weeks ([facility] care follow up ) Time of Disposition: 08:39
[2024-06-30 08:26] VITALS: BP 133/90; PULSE 107; RESP 16; TEMP 36.9; O2SAT 98
== END 2024-06-30 08:45 | disposition home or self-care (01) ==
PROVIDERS: Emergency Provider Nurse Practitioner; PCP Family Medicine
DX: L29.9 Pruritus, unspecified (principal); E11.9 Type 2 diabetes mellitus without complications; Z79.84 Long term (current) use of oral hypoglycemic drugs; E78.00 Pure hypercholesterolemia, unspecified; M19.90 Unspecified osteoarthritis, unspecified site
CPT/HCPCS: 99213; G0463

== ENCOUNTER 2024-08-10 08:14 | Emergency (ER) | payer BC, SELFPAY ==
--- NOTE | ~2024-08-10 | XR_ITS ---
XR hip RT 2V w AP pelvis 08/10/2024 08:55 Indication: Right lateral hip pain after recent fall Procedure: AP pelvis and 2 views right hip Comparison: No prior studies for comparison. Findings: There is symmetric osteoarthritis of the hips. There are symmetric degenerative changes of the sacroiliac joints. Sacral foramen are symmetric. Pelvic rings are intact. No acute fracture or tr aumatic malalignment. No foreign bodies. Impression: 1: Moderate symmetric osteoarthritis of the hips. Reviewed, dictated and finalized at location A. Impression: 1: Moderate symmetric osteoarthritis of the hips.
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
[2024-08-10 08:34] VITALS: BP 109/75; PULSE 103; RESP 16; TEMP 36.8; O2SAT 99
== END 2024-08-10 09:39 | disposition home or self-care (01) ==
PROVIDERS: Emergency Provider Nurse Practitioner Family; PCP Family Medicine
DX: R09.82 Postnasal drip (principal); J30.9 Allergic rhinitis, unspecified; S70.01XA Contusion of right hip, initial encounter; W19.XXXA Unspecified fall, initial encounter; M16.11 Unilateral primary osteoarthritis, right hip; M43.6 Torticollis; V89.2XXA Person injured in unspecified motor-vehicle accident, traffic, initial encounter; E11.9 Type 2 diabetes mellitus without complications; Z79.84 Long term (current) use of oral hypoglycemic drugs; Z79.85 Long-term (current) use of injectable non-insulin antidiabetic drugs; E78.00 Pure hypercholesterolemia, unspecified
CPT/HCPCS: 73502; 99213; G0463

== ENCOUNTER 2025-04-05 10:50 | Outpatient (CLI) | payer BC, SELFPAY ==
--- NOTE | ~2025-04-05 | MM_ITS ---
EXAMINATION: MM screening ziggy BI w danyelle HISTORY: Screening TECHNIQUE: Craniocaudal and mediolateral oblique 3-D tomosynthesis images were obtained and synthetic 2-D images were generated. CAD analysis was submitted and interpreted. COMPARISON: 2023, 2022, and 2020 BREAST PARENCHYMAL COMPOSITION: The breast tissue is heterogeneously dense, which may obscure small masses. FINDINGS: No suspicious masses are seen. There are no suspicious calcifications. No unexplained architectural distortion is seen. There are no skin or nipple abnormalities identified. There is no adenopathy seen on the images submitted. IMPRESSION: No mammographic evidence to suggest malignancy is seen. The patient may return to screening mammography as per ACR guidelines. BI-RADS 1 - Negative. Reviewed, dictated and finalized at location C. 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
== END 2025-04-05 10:51 | disposition home or self-care (01) ==
LOC: MICIMG 10:53
PROVIDERS: PCP Family Medicine; Visit Provider Obstetrics & Gynecology
DX: Z12.31 Encounter for screening mammogram for malignant neoplasm of breast (principal)
CPT/HCPCS: 77063; 77067